=== PATIENT | female | born 1960 | race Caucasian/White ===

== ENCOUNTER 2020-01-25 10:28 | Outpatient (CLI) | payer MEDICARE, SELFPAY ==
[2020-01-25 10:48] LABS: Add Urine Microscopic? YES; Appearance Urine Clear (Clear); Bilirubin Urine Negative (Negative); Blood Urine 3+ (Negative); Color Urine Yellow (Yellow); Glucose Urine UA Negative (Negative); Ketones Urine Negative (Negative); Leukocyte Esterase Ur Negative LEU/UL (Negative); Nitrate Urine Positive (Negative); Protein Urine 2+ (Negative); Specific Grav Ur >= 1.030 (1.010-1.020); Urobilinogen Urine 0.2 mg/dL (0.2-1.0)
[2020-01-25 10:58] LABS: RBC Urine 0-2 /hpf (0-2); WBC Urine 0-3 /hpf (0-3)
[2020-01-25 11:01] LABS: Bacteria Urine 3+ /hpf; Squamous Epithelial Cell Urine Few /hpf (Few)
[2020-01-25 11:03] LABS: Hemoglobin A1C 5.2 % (<5.7)
[2020-01-25 11:12] LABS: Microalbumin Urine Random > 400.0 mg/L
[2020-01-25 11:48] LABS: Alanine Aminotransferase 18 U/L (14-59); Albumin Level 3.4 g/dL (3.4-5.0); Alkaline Phosphatase 132 U/L (46-116); Anion Gap 11.7 mmol/L (7-16); Aspartate Amino Transferase 22 U/L (15-37); Bilirubin,Total 0.3 mg/dL (0.00-1.00); Blood Urea Nitrogen 13 mg/dL (7-18); Calcium 9.3 mg/dL (8.5-10.1); Carbon Dioxide 31 mmol/L (21-32); Chloride 104 mmol/L (98-108); Cholesterol 255 mg/dL (0-200); Estimated Glomerular Filt Rate > 60; Free T4 Free Thyroxine 1.12 ng/dL (0.76-1.46); Glucose 89 mg/dL (70-99); HDL Direct 56 mg/dL (40-60); LDL Cholesterol Calculated 124 mg/dL (<130); Osmolality Calculated 293 mOsm/kg (285-295); Potassium 4.7 mmol/L (3.5-5.1); Sodium 142 mmol/L (136-145); Thyroid Stimulating Hormone 1.68 uIU/mL (0.36-3.74); Total Protein 6.4 g/dL (6.4-8.2); Triglycerides 377 mg/dL (0-150)
[2020-01-30 18:49] LABS: Vitamin D 25 Hydroxy 31 ng/mL (30-100)
== END 2020-01-25 10:29 | disposition home or self-care (01) ==
LOC: CHSLAB 10:30
PROVIDERS: PCP Internal Medicine; Visit Provider Internal Medicine
DX: E03.9 Hypothyroidism, unspecified (principal); E55.9 Vitamin D deficiency, unspecified; E78.5 Hyperlipidemia, unspecified; I10 Essential (primary) hypertension; R73.01 Impaired fasting glucose; R82.90 Unspecified abnormal findings in urine
CPT/HCPCS: 36415; 80053; 80061; 81001; 82043; 82306; 83036; 84439; 84443; 87077; 87086; 87088; 87186

== ENCOUNTER 2020-03-07 12:11 | Outpatient (CLI) | payer MEDICARE, OTHER, SELFPAY ==
--- NOTE | ~2020-03-07 | DEXA_ITS ---
BMD(1) Young-Adult(2) Age-Matched(3) Region (g/cm2) T-score Z-score WHO Classification L1 0.918 -1.8 -1.1 Osteopenia L2 1.020 -1.6 -0.9 Osteopenia L3 1.038 -1.4 -0.7 Osteopenia L4 1.099 -0.9 -0.2 Normal L1-L4 1.022 -1.4 -0.7 Osteopenia Trend: L1-L4 Change vs Change vs Measured Age BMD(1) Baseline Previous Date (years) (g/cm2) (%) (%) 03/07/2020 59.7 1.022 -6.4* -3.0* 06/09/2013 52.9 1.054 -3.5* -3.5* 05/05/2010 50.8 1.092 baseline - * - Indicates significant change based on 95% confidence interval. 1 - Statistically 68% of repeat scans fall within 1SD (+- 0.010 g/cm2 for AP Spine L1-L4) 2 - [place] (Combined NHANES (ages 20-30) / Boutique Window (ages 20-40)) AP Spine Reference Population (v112) 3 - Matched for Age, Weight (females 25-100 kg), Ethnic 11 - World Health Organization - Definition of Osteoporosis and Osteopenia for Women: Normal = T-score at or above -1.0 SD; Osteopenia = T-score between -1.0 and -2.5 SD; Osteoporosis = T-score at or below -2.5 SD; (WHO definitions only apply when a young healthy Women reference database is used to determine T-scores.) Printed: 03/07/2020 12:56:09 PM (13.60)76:3.00:50.00:12.0 0.00:8.94 0.60x1.05 27.0:%Fat=41.6% 0.00:0.00 0.00:0.00 Filename: [id number] Scan Mode: Standard;OneScan 37.0 [employer] [id number] BMD(1) Young-Adult(2,7) Age-Matched(3) Region (g/cm2) T-score Z-score WHO Classification Neck Left 0.745 -2.1 -1.2 Osteopenia Right 0.731 -2.2 -1.3 Osteopenia Mean 0.738 -2.2 -1.3 Osteopenia Difference 0.015 -0.1 -0.1 - Total Left 0.825 -1.5 -0.9 Osteopenia Right 0.823 -1.5 -0.9 Osteopenia Mean 0.824 -1.5 -0.9 Osteopenia Difference 0.002 0.0 0.0 - Hip Wiley Length Comparison (mm) (Right = 109.4 mm) (Mean = 102.5 mm) (Left = 113.6 mm) Trend: Total Mean Change vs Change vs Measured Age BMD(1) Baseline Previous Date (years) (g/cm2) (%) (%) 03/07/2020 60.7 0.824 -16.7* -12.7* 06/09/2013 52.9 0.944 -4.6* -4.6* 05/05/2010 50.8 0.989 baseline - * - Indicates significant change based on 95% confidence interval. 1 - Statistically 68% of repeat scans fall within 1SD (+- 0.010 g/cm2 for DualFemur Total) 2 - [place] (Combined NHANES (ages 20-30) / Boutique Window (ages 20-40)) Femur Reference Population (v112) 3 - Matched for Age, Weight (females 25-100 kg), Ethnic 7 - DualFemur Total T-score difference is 0.0. Asymmetry is None. 11 - World Health Organization - Definition of Osteoporosis and Osteopenia for Women: Normal = T-score at or above -1.0 SD; Osteopenia = T-score between -1.0 and -2.5 SD; Osteoporosis = T-score at or below -2.5 SD; (WHO definitions only apply when a young healthy Women reference database is used to determine T-scores.) Printed: 03/07/2020 12:56:09 PM (13.60); Filename: [id number]; Right Femur; 21.4:%Fat=38.9%; Neck Angle (deg)= 60; Scan Mode: Standard 37.0 uGy; Left Femur; 23.0:%Fat=46.0%; Neck Angle (deg)= 68; Scan Mode: Standard 37.0 [employer]pers [id number] Dear Erma Kilpatrick, Your patient Tasha Garcia completed a BMD test on 03/07/2020 using the Propers DXA System (analysis version: 13.60) manufactured by [employer]. The following summarizes the results of our evalu
--- NOTE | ~2020-03-07 | MM_ITS ---
EXAMINATION: MM screening thelma BI w mnoica HISTORY: Screening mammogram TECHNIQUE: Craniocaudal and mediolateral oblique 3-D tomosynthesis images were obtained and synthetic 2-D images were generated. CAD analysis was submitted and interpreted. COMPARISON: 09/28/2017, 04/20/2016 bilateral digital screening mammogram examinations BREAST PARENCHYMAL COMPOSITION: There are scattered areas of fibroglandular density. FINDINGS: There is no evidence of suspicious mass, calcification, or architectural distortion to sugg est malignancy in either breast. There has been no suspicious interval change. IMPRESSION: 1. No mammographic evidence of malignancy. 2. Recommend routine screening mammography in one year. BI-RADS Category 1: Negative Reviewed, dictated and finalized at location A.
== END 2020-03-07 12:12 | disposition home or self-care (01) ==
LOC: CHSIMG 12:11
PROVIDERS: PCP Internal Medicine; Visit Provider Internal Medicine
DX: Z12.31 Encounter for screening mammogram for malignant neoplasm of breast (principal); M81.0 Age-related osteoporosis without current pathological fracture
CPT/HCPCS: 77063; 77067; 77080

== ENCOUNTER 2020-03-21 13:52 | Outpatient (CLI) | payer MEDICARE, OTHER, SELFPAY ==
--- NOTE | ~2020-03-21 | XR_ITS ---
EXAMINATION: XR foot LT min 3V DATE: 03/21/2020 14:21 INDICATION: Left foot pain TECHNIQUE: Dorsoplantar, lateral, and 2 oblique views of the left foot were obtained. COMPARISON: 08/13/2010 FINDINGS: There is mild osteoarthritis at the first metatarsophalangeal joint. No displaced fracture is identified. The soft tissues are unremarkable. Dorsal and plantar calcaneal enthesophytes are note d. IMPRESSION: 1. No acute osseous abnormality. Reviewed, dictated and finalized at location A.
== END 2020-03-21 13:53 | disposition home or self-care (01) ==
LOC: CHSIMG 13:54
PROVIDERS: PCP Internal Medicine; Visit Provider Internal Medicine
DX: S99.922A Unspecified injury of left foot, initial encounter (principal)
CPT/HCPCS: 73630

== ENCOUNTER 2020-07-17 09:35 | Outpatient (CLI) | payer MEDICARE, SELFPAY ==
[2020-07-17 09:49] LABS: Add Urine Microscopic? YES; Appearance Urine Sl Cloudy (Clear); Basophils Absolute Auto 0.09 K/mm3 (0.00-0.10); Basophils Percent Auto 0.9 % (0.0-1.0); Bilirubin Urine Negative (Negative); Blood Urine 2+ (Negative); Color Urine Yellow (Yellow); Eosinophils Absolute Auto 0.13 K/mm3 (0.02-0.50); Eosinophils Percent Auto 1.3 % (1.0-6.0); Glucose Urine UA Negative (Negative); Hematocrit 44.5 % (35.0-49.0); Hemoglobin 15.1 g/dL (12.0-15.0); Immature Granulocyte Absolute 0.04 K/mm3 (0.00-0.00); Immature Granulocyte Percent A 0.4 % (0.0-0.0); Ketones Urine Negative (Negative); Leukocyte Esterase Ur Negative (Negative); Lymphocytes Absolute Auto 2.59 K/mm3 (1.10-4.50); Lymphocytes Percent Auto 25.1 % (18.0-42.0); Mean Corpuscular HGB Conc 33.9 g/dL (32.0-36.0); Mean Corpuscular Hemoglobin 34.7 pg (27.0-31.0); Mean Corpuscular Volume 102.3 fL (78.0-102.0); Mean Platelet Volume 8.8 fl (9.2-11.8); Monocytes Percent Auto 10.7 % (2.0-11.0); Neutrophils Absolute Auto 6.4 K/mm3 (1.7-7.2); Neutrophils Percent Auto 61.6 % (50.0-70.0); Nitrate Urine Positive (Negative); Platelet Count Result 278 K/mm3 (150-420); Protein Urine 2+ (Negative); Red Blood Count 4.35 M/mm3 (4.20-5.40); Red Cell Distribution Width 13.1 % (11.6-14.4); Specific Grav Ur >= 1.030 (1.010-1.020); Urobilinogen Urine 0.2 mg/dL (0.2-1.0); White Blood Count 10.3 K/mm3 (4.8-10.8)
[2020-07-17 09:54] LABS: Bacteria Urine 2+ /hpf; Squamous Epithelial Cell Urine Few /hpf (Few); WBC Urine 0-3 /hpf (0-3)
[2020-07-17 10:06] LABS: Creatinine Urine 105.01 mg/dL (40-278)
[2020-07-17 10:07] LABS: MALB Creatinine Ratio 380.9 mg/g (0-30); Microalbumin Urine Random > 400.0 mg/L
[2020-07-17 10:09] LABS: Hemoglobin A1C 4.9 % (<5.7)
[2020-07-17 10:39] LABS: Alanine Aminotransferase 15 U/L (14-59); Albumin Level 3.5 g/dL (3.4-5.0); Alkaline Phosphatase 143 U/L (46-116); Anion Gap 9 mmol/L (8-16); Aspartate Amino Transferase 19 U/L (15-37); Bilirubin,Total 0.4 mg/dL (0.00-1.00); Blood Urea Nitrogen 12 mg/dL (7-18); Calcium 9.4 mg/dL (8.5-10.1); Carbon Dioxide 28 mmol/L (21-32); Chloride 105 mmol/L (98-108); Cholesterol 247 mg/dL (0-200); Creatine Kinase 48 U/L (26-192); Estimated Glomerular Filt Rate > 60; Free T3 2.49 pg/mL (2.18-3.98); Free T4 Free Thyroxine 1.01 ng/dL (0.76-1.46); Glucose 100 mg/dL (70-99); HDL Direct 63 mg/dL (40-60); LDL Cholesterol Calculated 135 mg/dL (<130); Osmolality Calculated 293 mOsm/kg (285-295); Sodium 142 mmol/L (136-145); Total Protein 6.6 g/dL (6.4-8.2); Triglycerides 246 mg/dL (0-150); Uric Acid 5.5 mg/dL (2.6-6.0)
[2020-07-21 08:11] LABS: Zinc 71 mcg/dL (60-130)
[2020-07-22 02:02] LABS: Vitamin D 25 Hydroxy 37 ng/mL (30-100)
[2020-07-23 13:17] LABS: Vitamin A 54 mcg/dL (38-98)
== END 2020-07-17 09:36 | disposition home or self-care (01) ==
LOC: CHSLAB 09:37
PROVIDERS: PCP Internal Medicine; Visit Provider Internal Medicine
DX: E03.4 Atrophy of thyroid (acquired) (principal); Z98.84 Bariatric surgery status; E79.0 Hyperuricemia without signs of inflammatory arthritis and tophaceous disease; E78.2 Mixed hyperlipidemia; R73.01 Impaired fasting glucose; E55.9 Vitamin D deficiency, unspecified; N39.0 Urinary tract infection, site not specified
CPT/HCPCS: 36415; 80053; 80061; 81001; 82043; 82306; 82550; 83036; 84439; 84443; 84481; 84550; 84590; 84630; 85025; 87077; 87086; 87088; 87186

== ENCOUNTER 2020-07-30 12:28 | Outpatient (CLI) | payer MEDICARE, SELFPAY ==
[2020-07-30 12:44] LABS: Add Urine Microscopic? YES; Appearance Urine Clear (Clear); Bilirubin Urine Negative (Negative); Blood Urine 1+ (Negative); Color Urine Yellow (Yellow); Glucose Urine UA Negative (Negative); Ketones Urine Negative (Negative); Leukocyte Esterase Ur Negative (Negative); Nitrate Urine Negative (Negative); Protein Urine 2+ (Negative); Specific Grav Ur >= 1.030 (1.010-1.020); Urobilinogen Urine 0.2 mg/dL (0.2-1.0)
[2020-07-30 12:52] LABS: Squamous Epithelial Cell Urine Few /hpf (Few); WBC Urine 0-3 /hpf (0-3)
[2020-07-30 12:53] LABS: Bacteria Urine Trace /hpf
[2020-07-30 14:02] LABS: Vitamin B12 1950 pg/mL (193-986)
[2020-08-01 11:53] LABS: Vitamin D 25 Hydroxy 34 ng/mL (30-100)
== END 2020-07-30 12:29 | disposition home or self-care (01) ==
LOC: CHSLAB 12:30
PROVIDERS: PCP Internal Medicine; Visit Provider Internal Medicine
DX: N39.0 Urinary tract infection, site not specified (principal); M05.59 Rheumatoid polyneuropathy with rheumatoid arthritis of multiple sites; E55.9 Vitamin D deficiency, unspecified
CPT/HCPCS: 36415; 81001; 82306; 82607; 87077; 87086; 87088; 87186

== ENCOUNTER 2020-09-09 10:47 | Outpatient (CLI) | payer MEDICARE, OTHER, SELFPAY ==
--- NOTE | ~2020-09-09 | CT_ITS ---
EXAMINATION:CT lung screening DATE: 09/09/2020 11:06 INDICATION: Personal history of tobacco dependence. Current smoker with 43 pack year history. TECHNIQUE: Computed tomography (CT) of the chest was performed without intravenous contrast. Automate d exposure control and iterative reconstruction technique were employed. The dose-length product (DLP ) was 194.61 mGy-cm. COMPARISON: Chest CT 09/26/2018 FINDINGS: There is mild emphysema. There is mosaic attenuation the lungs, likely small airways diseas e. Calcified right lung nodules and calcified right hilar and mediastinal lymph nodes are consistent with old granulomatous disease. There is a cluster of nodules measuring up to 3 mm in right upper lob e. There is a 3 mm nodule in right lower lobe. No pleural effusion. The heart size is normal. There a re coronary artery calcifications. There are calcifications of aortic valve. No pericardial effusion. There are changes of anterior fusion procedure in cervical spine. There is a small sliding hiatal he rnia. Calcifications in the spleen are consistent with old granulomatous disease. There are changes o f cholecystectomy. There is a 1.8 cm cyst in left kidney. There are masses measuring low-attenuation in the adrenal glands measuring up to 2.0 cm on the left, consistent with adenomas. There are surgica l changes in the stomach. There is mild thoracic spondylosis. IMPRESSION: 1. Lung-RADS category 2: Benign appearance or behavior. Continue annual screening with noncontrast lo w-dose chest CT in 12 months. Reviewed, dictated and finalized at location A. 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 Lung-RADS category 2: Benign appearance or behavior. Continue annual screeni ng with noncontrast low-dose chest CT in 12 months.
== END 2020-09-09 10:48 | disposition home or self-care (01) ==
LOC: CHSIMG 10:48
PROVIDERS: PCP Internal Medicine; Visit Provider Internal Medicine
DX: Z12.2 Encounter for screening for malignant neoplasm of respiratory organs (principal); Z87.891 Personal history of nicotine dependence
CPT/HCPCS: 71271

== ENCOUNTER 2021-02-14 07:07 | Outpatient (CLI) | payer MEDICARE, SELFPAY ==
[2021-02-14 07:29] LABS: Basophils Absolute Auto 0.08 K/mm3 (0.00-0.10); Basophils Percent Auto 0.6 % (0.0-1.0); Eosinophils Absolute Auto 0.12 K/mm3 (0.02-0.50); Hematocrit 42.1 % (35.0-49.0); Hemoglobin 13.6 g/dL (12.0-15.0); Immature Granulocyte Absolute 0.12 K/mm3 (0.00-0.00); Lymphocytes Absolute Auto 4.29 K/mm3 (1.10-4.50); Lymphocytes Percent Auto 34.6 % (18.0-42.0); Mean Corpuscular HGB Conc 32.3 g/dL (32.0-36.0); Mean Corpuscular Hemoglobin 35.5 pg (27.0-31.0); Mean Corpuscular Volume 109.9 fL (78.0-102.0); Mean Platelet Volume 9.4 fl (9.2-11.8); Monocytes Percent Auto 6.4 % (2.0-11.0); Neutrophils Percent Auto 56.4 % (50.0-70.0); Platelet Count Result 159 K/mm3 (150-420); Red Blood Count 3.83 M/mm3 (4.20-5.40); White Blood Count 12.4 K/mm3 (4.8-10.8)
[2021-02-14 07:30] LABS: Add Urine Microscopic? YES; Appearance Urine Clear (Clear); Bilirubin Urine Negative (Negative); Blood Urine 2+ (Negative); Color Urine Yellow (Yellow); Glucose Urine UA Negative (Negative); Ketones Urine Negative (Negative); Leukocyte Esterase Ur Negative (Negative); Nitrate Urine Positive (Negative); Protein Urine Trace (Negative); Specific Grav Ur >= 1.030 (1.010-1.020); Urobilinogen Urine 0.2 mg/dL (0.2-1.0); pH Urine 5.5 (5.0-8.0)
[2021-02-14 07:36] LABS: Bacteria Urine 1+ /hpf; Squamous Epithelial Cell Urine Rare /hpf (Few); WBC Urine 0-3 /hpf (0-3)
[2021-02-14 07:49] LABS: Hemoglobin A1C 4.8 % (<5.7)
[2021-02-14 09:00] LABS: Alanine Aminotransferase 20 U/L (14-59); Albumin Level 3.5 g/dL (3.4-5.0); Alkaline Phosphatase 60 U/L (46-116); Anion Gap 11 mmol/L (8-16); Aspartate Amino Transferase 18 U/L (15-37); Bilirubin,Total 0.2 mg/dL (0.00-1.00); Blood Urea Nitrogen 24 mg/dL (7-18); Calcium 8.7 mg/dL (8.5-10.1); Carbon Dioxide 27 mmol/L (21-32); Chloride 109 mmol/L (98-108); Cholesterol 223 mg/dL (0-200); Creatine Kinase 36 U/L (26-192); Estimated Glomerular Filt Rate > 60; Free T3 2.02 pg/mL (2.18-3.98); Free T4 Free Thyroxine 0.78 ng/dL (0.76-1.46); Glucose 79 mg/dL (70-99); HDL Direct 55 mg/dL (40-60); LDL Cholesterol Calculated 87 mg/dL (<130); Osmolality Calculated 307 mOsm/kg (285-295); Potassium 3.9 mmol/L (3.5-5.1); Sodium 147 mmol/L (136-145); Thyroid Stimulating Hormone 4.11 uIU/mL (0.36-3.74); Total Protein 5.6 g/dL (6.4-8.2); Triglycerides 405 mg/dL (0-150); Uric Acid 5.9 mg/dL (2.6-6.0)
[2021-02-14 09:01] LABS: LDL Cholesterol Direct 92 mg/dL (0-130)
[2021-02-17 02:34] LABS: Vitamin D 25 Hydroxy 28 ng/mL (30-100)
== END 2021-02-14 07:08 | disposition home or self-care (01) ==
LOC: CHSLAB 07:09
PROVIDERS: PCP Internal Medicine; Visit Provider Internal Medicine
DX: E78.2 Mixed hyperlipidemia (principal); I10 Essential (primary) hypertension; E03.4 Atrophy of thyroid (acquired); R73.01 Impaired fasting glucose; E79.0 Hyperuricemia without signs of inflammatory arthritis and tophaceous disease; M81.0 Age-related osteoporosis without current pathological fracture; N39.0 Urinary tract infection, site not specified; E55.9 Vitamin D deficiency, unspecified
CPT/HCPCS: 36415; 80053; 80061; 81001; 82306; 82550; 83036; 83721; 84439; 84443; 84481; 84550; 85025; 87077; 87086; 87088; 87186

== ENCOUNTER 2021-02-26 09:45 | Outpatient (CLI) | payer MEDICARE, OTHER, SELFPAY ==
--- NOTE | ~2021-02-26 | XR_ITS ---
EXAMINATION: XR chest 2V DATE: 02/26/2021 10:11 INDICATION: Shortness of breath. TECHNIQUE: Frontal and lateral views of the chest were obtained. COMPARISON: Chest 2 views 12/18/2015, chest CT 09/09/2020 FINDINGS: The lungs are hyperexpanded, consistent with chronic obstructive pulmonary disease. Calcifi ed right lung nodules and calcified right hilar and mediastinal lymph nodes are consistent with old g ranulomatous disease. No pleural effusion or pneumothorax. The heart size is normal. There are change s of anterior fusion procedure in cervical spine. Surgical clips in the right upper quadrant are like ly from cholecystectomy. IMPRESSION: 1. Hyperexpanded lungs, consistent with chronic obstructive pulmonary disease. Reviewed, dictated and finalized at location A.
[2021-02-26 10:01] LABS: Basophils Absolute Auto 0.09 K/mm3 (0.00-0.10); Basophils Percent Auto 0.7 % (0.0-1.0); Eosinophils Absolute Auto 0.19 K/mm3 (0.02-0.50); Eosinophils Percent Auto 1.5 % (1.0-6.0); Hematocrit 43.3 % (35.0-49.0); Hemoglobin 14.3 g/dL (12.0-15.0); Immature Granulocyte Absolute 0.26 K/mm3 (0.00-0.00); Lymphocytes Absolute Auto 3.05 K/mm3 (1.10-4.50); Lymphocytes Percent Auto 23.5 % (18.0-42.0); Mean Corpuscular Hemoglobin 35.8 pg (27.0-31.0); Mean Corpuscular Volume 108.5 fL (78.0-102.0); Mean Platelet Volume 9.3 fl (9.2-11.8); Monocytes Absolute Auto 1.13 K/mm3 (0.10-0.90); Monocytes Percent Auto 8.7 % (2.0-11.0); Neutrophils Absolute Auto 8.3 K/mm3 (1.7-7.2); Neutrophils Percent Auto 63.6 % (50.0-70.0); Platelet Count Result 159 K/mm3 (150-420); Red Blood Count 3.99 M/mm3 (4.20-5.40); Red Cell Distribution Width 13.9 % (11.6-14.4)
[2021-02-26 10:29] LABS: Alanine Aminotransferase 18 U/L (14-59); Albumin Level 3.6 g/dL (3.4-5.0); Alkaline Phosphatase 57 U/L (46-116); Anion Gap 11 mmol/L (8-16); Aspartate Amino Transferase < 10 U/L (15-37); Bilirubin,Total 0.3 mg/dL (0.00-1.00); Blood Urea Nitrogen 21 mg/dL (7-18); Calcium 8.7 mg/dL (8.5-10.1); Carbon Dioxide 26 mmol/L (21-32); Chloride 109 mmol/L (98-108); Estimated Glomerular Filt Rate > 60; Glucose 90 mg/dL (70-99); NT Pro B Type Natriuretic Pept 509 pg/mL (0-125); Osmolality Calculated 305 mOsm/kg (285-295); Potassium 4.1 mmol/L (3.5-5.1); Sodium 146 mmol/L (136-145); Thyroid Stimulating Hormone 1.44 uIU/mL (0.36-3.74); Total Protein 6.2 g/dL (6.4-8.2)
== END 2021-02-26 09:46 | disposition home or self-care (01) ==
LOC: CHSLAB 09:50
PROVIDERS: PCP Internal Medicine; Visit Provider Internal Medicine
DX: R06.02 Shortness of breath (principal); M05.79 Rheumatoid arthritis with rheumatoid factor of multiple sites without organ or systems involvement; Z79.899 Other long term (current) drug therapy; E05.90 Thyrotoxicosis, unspecified without thyrotoxic crisis or storm
CPT/HCPCS: 36415; 71046; 80053; 83880; 84443; 85025

== ENCOUNTER 2021-02-28 11:25 | Outpatient (CLI) | payer MEDICARE, OTHER, SELFPAY ==
--- NOTE | ~2021-02-28 | CT_ITS ---
EXAMINATION: CTA chest PE protocol DATE: 02/28/2021 15:06 INDICATION: Shortness of breath TECHNIQUE: Computed tomography angiography (CTA) of the chest was performed with 100 mL Omnipaque-350 intravenous contrast timed to evaluate the pulmonary arteries. Coronal maximum intensity projection 3D-reconstructions were created by the technologist. The dose-length product (DLP) was 527.29 mGy-cm. Automated exposure control and iterative reconstruction technique were employed. COMPARISON: 09/09/2020 FINDINGS: The pulmonary arteries are well-opacified. There are acute emboli in the upper lobes, the r ight middle lobe, the lingula, and lower lobes. There is a cluster of nodules in the right upper lobe which have increased in size now measuring up to 5 mm. There is no pleural effusion or pneumothorax. There is mild emphysema. The heart size is normal. Calcified coronary artery atherosclerosis is note d. Calcified mediastinal lymph nodes are consistent with old granulomatous disease. Again noted are a denomas of the adrenal glands. Punctate calcifications in otherwise normal appearing liver and spleen likely represent healed granulomatous disease. The gallbladder is surgically absent. IMPRESSION: 1. Widespread pulmonary emboli involving all lobes of the lungs. These findings were discussed with Dr. Erma Kilpatrick MD at 1515 hours on 02/28/2021. Reviewed, dictated and finalized at location B. IMPRESSION: 1. Widespread pulmonary emboli involving all lobes of the lungs. These findings were discussed with Dr. Erma Kilpatrick MD at 1515 hours on .
[2021-02-28 11:48] LABS: Basophils Absolute Auto 0.04 K/mm3 (0.00-0.10); Basophils Percent Auto 0.4 % (0.0-1.0); Eosinophils Absolute Auto 0.05 K/mm3 (0.02-0.50); Eosinophils Percent Auto 0.5 % (1.0-6.0); Hematocrit 44.5 % (35.0-49.0); Hemoglobin 14.7 g/dL (12.0-15.0); Immature Granulocyte Absolute 0.13 K/mm3 (0.00-0.00); Immature Granulocyte Percent A 1.2 % (0.0-0.0); Mean Corpuscular Hemoglobin 35.8 pg (27.0-31.0); Mean Corpuscular Volume 108.3 fL (78.0-102.0); Mean Platelet Volume 9.4 fl (9.2-11.8); Monocytes Absolute Auto 0.39 K/mm3 (0.10-0.90); Monocytes Percent Auto 3.6 % (2.0-11.0); Neutrophils Absolute Auto 8.6 K/mm3 (1.7-7.2); Neutrophils Percent Auto 80.3 % (50.0-70.0); Platelet Count Result 157 K/mm3 (150-420); Red Blood Count 4.11 M/mm3 (4.20-5.40); Red Cell Distribution Width 13.7 % (11.6-14.4); White Blood Count 10.7 K/mm3 (4.8-10.8)
[2021-02-28 12:12] LABS: D Dimer 4.97 mg/L (0.19-0.50)
[2021-02-28 12:28] LABS: Alanine Aminotransferase 19 U/L (14-59); Albumin Level 3.8 g/dL (3.4-5.0); Alkaline Phosphatase 60 U/L (46-116); Anion Gap 9 mmol/L (8-16); Aspartate Amino Transferase 18 U/L (15-37); Bilirubin,Total 0.5 mg/dL (0.00-1.00); Blood Urea Nitrogen 20 mg/dL (7-18); Calcium 8.9 mg/dL (8.5-10.1); Carbon Dioxide 27 mmol/L (21-32); Chloride 107 mmol/L (98-108); Estimated Glomerular Filt Rate > 60; Glucose 97 mg/dL (70-99); NT Pro B Type Natriuretic Pept 339 pg/mL (0-125); Osmolality Calculated 298 mOsm/kg (285-295); Potassium 4.4 mmol/L (3.5-5.1); Sodium 143 mmol/L (136-145); Total Protein 6.4 g/dL (6.4-8.2); Vitamin B12 1207 pg/mL (193-986)
[2021-02-28 12:46] LABS: Folic Acid > 20.0 ng/mL (8.6->20)
[2021-02-28 12:54] LABS: SARS-CoV-2 RNA PCR Negative (Negative)
[2021-02-28 15:44] VITALS: BMI 33.8
[2021-02-28 15:45] VITALS: BP 130/74; PULSE 72; RESP 20; O2SAT 93
[2021-02-28] MEDS: ENOXAPARIN 30 MG/0.3 ML SYRINGE SUB-Q (15:55)
[2021-02-28] MEDS: ENOXAPARIN 120 MG/0.8 ML SYRINGE SUB-Q (15:55)
--- NOTE | 2021-02-28 15:58 | PC.NURSE ---
Patient sent over by Dr. Kilpatrick to have Lovenox injection x1 r/t findings on CTA of PE. Education on medication given. Injection given. Patient will now be starting tomorrow on Eliquis PO. Tolerated injection well. SEE MAR. Safe exit of hospital.
== END 2021-02-28 11:26 | disposition home or self-care (01) ==
PROVIDERS: PCP Internal Medicine; Visit Provider Internal Medicine
DX: I26.99 Other pulmonary embolism without acute cor pulmonale (principal); R06.02 Shortness of breath; R79.1 Abnormal coagulation profile; R05 Cough; E53.8 Deficiency of other specified B group vitamins; Z20.822 Contact with and (suspected) exposure to COVID-19
CPT/HCPCS: 36415; 71275; 80053; 82607; 82746; 83880; 85025; 85380; 96372; C9803; J1650; Q9967; U0003; U0005

== ENCOUNTER 2021-03-20 11:43 | Outpatient (CLI) | payer MEDICARE, OTHER, SELFPAY ==
--- NOTE | ~2021-03-20 | MM_ITS ---
EXAMINATION: MM screening thelma BI w monica HISTORY: Screening TECHNIQUE: Craniocaudal and mediolateral oblique 3-D tomosynthesis images were obtained and synthetic 2-D images were generated. CAD analysis was submitted and interpreted. COMPARISON: Comparison to multiple prior studies sequentially, with oldest reviewed study dated 04/13. BREAST PARENCHYMAL COMPOSITION: There are scattered areas of fibroglandular density. FINDINGS: There is no evidence of suspicious mass, calcification, or architectural distortion to sugg est malignancy in either breast. There has been no suspicious interval change. IMPRESSION: 1. No mammographic evidence of malignancy. 2. Recommend routine screening mammography in one year. BI-RADS Category 1: Negative Reviewed, dictated and finalized at location A.
--- NOTE | 2021-03-20 12:59 | ECHO_ITS ---
Patient Info Name: Tasha Garcia Age: 60 years : 1960 Gender: Female Ht: 62 in Wt: 185 lbs BSA: 1.95 m2 HR: 56 bpm BP: 132 / 72 mmHg Exam Date: 03/20/2021 12:02 PM Exam Location: [facility] Patient Status: Outpatient Admit Date: 03/20/2021 Staff Ordering Physician: Mary, Carrington Dhaliwal MD Park Guard: Jovani Ferrari RDCS, RT Attending Provider: Erma Kilpatrick MD Referring Physician: Mary GUERRERO; Exam Type: CA echo doppler color flow Study Info Indications R06.02 - Shortness of breath Complete two-dimensional, color flow and Doppler transthoracic echocardiogram is performed. Strain analysis performed. Summary 1. Complete two-dimensional, color flow and Doppler transthoracic echocardiogram is performed. 2. Left ventricular chamber dimension is normal. 3. Left ventricular systolic function is normal, estimated at 60-65%. 4. The left ventricular diastolic function is grade I diastolic dysfunction. 5. E/e' 9 is minimally elevated. 6. Global longitudinal strain is normal at -17.8%. 7. Left atrial chamber dimension is mildly enlarged. 8. There is moderate aortic valve sclerosis. 9. There is mild aortic valve stenosis with a peak velocity of 216 cm/s, mean gradient of 10 mmHg, and aortic valve area of 1.8 cm2. 10. There is mild aortic valve regurgitation. 11. There is trace mitral valve regurgitation. 12. Dilated inferior vena cava with >50% collapse upon inspiration consistent with elevated right atrial pressure, 10 mmHg. Left Ventricle E/e' 9 is minimally elevated. Global longitudinal strain is normal at -17.8%. Left ventricular chamber dimension is normal. Left ventricular systolic function is normal, estimated at 60-65%. The left ventricular diastolic function is grade I diastolic dysfunction. Right Ventricle Right ventricular systolic function is normal and with normal TAPSE 2.6 cm. Right ventricular chamber dimension is normal. Left Atria Left atrial chamber dimension is mildly enlarged. Right Atria Right atrial chamber dimension is normal. Aortic Valve The aortic valve is trileaflet. There is moderate aortic valve sclerosis. There is mild aortic valve stenosis with a peak velocity of 216 cm/s, mean gradient of 10 mmHg, and aortic valve area of 1.8 cm2. There is mild aortic valve regurgitation. Pulmonic Valve There is no pulmonic regurgitation. Mitral Valve There is no mitral valve stenosis. There is trace mitral valve regurgitation. Tricuspid Valve No tricuspid regurgitation. Pericardium/Pleural There is no pericardial effusion. Inferior Vena Cava Dilated inferior vena cava with >50% collapse upon inspiration consistent with elevated right atrial pressure, 10 mmHg. Aorta The aortic root size at the sinus of Valsalva is not well visualized. Left Ventricular Outflow Tract Name Value Normal LVOT 2D LVOT Diameter 2.0 cm LVOT Doppler LVOT Peak Velocity 113 cm/s LVOT Peak Gradient 5 mmHg LVOT Mean Gradient 3 mmHg LVOT VTI 26 cm LVOT VTI/
== END 2021-03-20 11:44 | disposition home or self-care (01) ==
LOC: CHSIMG 11:45
PROVIDERS: PCP Internal Medicine; Visit Provider Internal Medicine
DX: J44.9 Chronic obstructive pulmonary disease, unspecified (principal); R06.02 Shortness of breath; I35.8 Other nonrheumatic aortic valve disorders; I35.0 Nonrheumatic aortic (valve) stenosis; Z12.31 Encounter for screening mammogram for malignant neoplasm of breast
CPT/HCPCS: 77063; 77067; 93306

== ENCOUNTER 2021-04-12 11:29 | Outpatient (CLI) | payer MEDICARE, SELFPAY ==
[2021-04-12 12:21] LABS: Anion Gap 8 mmol/L (8-16); Blood Urea Nitrogen 22 mg/dL (7-18); Calcium 8.8 mg/dL (8.5-10.1); Carbon Dioxide 31 mmol/L (21-32); Chloride 107 mmol/L (98-108); Estimated Glomerular Filt Rate > 60; Glucose 84 mg/dL (70-99); Osmolality Calculated 304 mOsm/kg (285-295); Potassium 4.5 mmol/L (3.5-5.1); Sodium 146 mmol/L (136-145)
== END 2021-04-12 11:30 | disposition home or self-care (01) ==
LOC: CHSLAB 11:31
PROVIDERS: PCP Internal Medicine; Visit Provider Internal Medicine
DX: I10 Essential (primary) hypertension (principal)
CPT/HCPCS: 36415; 80048

== ENCOUNTER 2021-06-17 13:35 | Outpatient (CLI) | payer MEDICARE, SELFPAY ==
[2021-07-02 08:23] LABS: Reference Lab Test Name THIOPURINE METABOLIT
== END 2021-06-17 13:36 | disposition home or self-care (01) ==
PROVIDERS: Internal Medicine; PCP Internal Medicine
DX: M05.79 Rheumatoid arthritis with rheumatoid factor of multiple sites without organ or systems involvement (principal)
CPT/HCPCS: 36415; 80299

== ENCOUNTER 2021-08-14 09:11 | Outpatient (RCR) | payer MEDICARE, SELFPAY ==
[2021-07-14 13:22] LABS: INR 2.1; Prothrombin Time 21.7 Seconds (9.50-12.10)
[2021-07-21 12:55] LABS: INR 4.2; Prothrombin Time 42.1 Seconds (9.50-12.10)
[2021-07-28 14:28] LABS: INR 2.7; Prothrombin Time 27.6 Seconds (9.50-12.10)
[2021-08-14 09:43] LABS: INR 2.8; Prothrombin Time 28.6 Seconds (9.50-12.10)
== END 2021-10-12 23:59 | disposition home or self-care (01) ==
LOC: CHSLAB 09:11
PROVIDERS: PCP Internal Medicine; Visit Provider Internal Medicine
DX: I26.99 Other pulmonary embolism without acute cor pulmonale (principal)
CPT/HCPCS: 36415; 85610

== ENCOUNTER 2021-09-12 10:35 | Outpatient (CLI) | payer MEDICARE, SELFPAY ==
--- NOTE | ~2021-09-12 | XR_ITS ---
EXAMINATION: XR chest 2V 09/12/2021 11:01 INDICATION: Shortness of breath and cough PROCEDURE: 2 view chest COMPARISON: Comparison to multiple prior studies sequentially, with oldest reviewed study dated 06/19. FINDINGS: The lungs are clear. The cardiomediastinal silhouette is within normal limits. There are no pleural effusions. There is no pneumothorax suspected. IMPRESSION: 1: NO ACUTE CARDIOPULMONARY DISEASE. Reviewed, dictated and finalized at location B. 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
[2021-09-12 10:48] LABS: Hematocrit 27.1 % (35.0-49.0); Hemoglobin 9.4 g/dL (12.0-15.0); Mean Corpuscular HGB Conc 34.7 g/dL (32.0-36.0); Mean Corpuscular Hemoglobin 41.2 pg (27.0-31.0); Mean Corpuscular Volume 118.9 fL (78.0-102.0); Mean Platelet Volume 10.3 fl (9.2-11.8); Platelet Count Result 188 K/mm3 (150-420); Red Blood Count 2.28 M/mm3 (4.20-5.40); Red Cell Distribution Width 22.1 % (11.6-14.4); White Blood Count 3.5 K/mm3 (4.8-10.8)
[2021-09-12 11:01] LABS: Band Neutrophils Percent 0 % (0-6); Eosinophils Absolute Manual 0.21 K/mm3 (0.02-0.5); Eosinophils Percent Manual 6 % (1-6); INR 1.8; Lymphocytes Absolute Manual 0.87 K/mm3 (1.1-4.5); Lymphocytes Percent Manual 25 % (18-44); Monocytes Absolute Manual 0.14 K/mm3 (0.1-0.90); Monocytes Percent Manual 4 % (3-9); Neutrophils Absolute Manual 2.27 K/mm3 (1.7-7.2); Neutrophils Percent Manual 65 % (46-73); Platelet Estimate Adequate (Adequate); Total Cells Counted 100
[2021-09-12 11:29] LABS: Immature Reticulocyte Fraction 23.5 % (2.0-16.52); Reticulocyte Hemoglobin Conten 43.8 pg (28.0-35.0); Reticulocyte Percent 3.86 % (0.50-1.50); Reticulocytes Absolute 0.09 M/mm3 (0.02-0.1)
[2021-09-12 12:09] LABS: Ferritin 187 ng/mL (8-252); Iron 241 ug/dL (50-170); Vitamin B12 986 pg/mL (193-986)
[2021-09-12 12:11] LABS: Influenza Control Valid (Valid); SARS-CoV-2 Ag Negative (Negative)
[2021-09-16 14:04] LABS: Red Blood Cell Folate 801 ng/mL RBC (>280)
== END 2021-09-12 10:36 | disposition home or self-care (01) ==
PROVIDERS: PCP Internal Medicine; Visit Provider Internal Medicine
DX: D64.9 Anemia, unspecified (principal); R05.9 Cough, unspecified; R06.02 Shortness of breath; Z79.01 Long term (current) use of anticoagulants; I26.99 Other pulmonary embolism without acute cor pulmonale
CPT/HCPCS: 36415; 71046; 82607; 82728; 82747; 83540; 85025; 85046; 85610; 87426; 87804; C9803

== ENCOUNTER 2021-09-19 10:48 | Outpatient (CLI) | payer MEDICARE, SELFPAY ==
[2021-09-19 10:58] LABS: Occult Blood Negative (Negative)
[2021-09-19 10:58] LABS: Occult Blood Negative (Negative)
[2021-09-19 10:58] LABS: Occult Blood Negative (Negative)
== END 2021-09-19 10:49 | disposition home or self-care (01) ==
LOC: CHSLAB 10:49
PROVIDERS: PCP Internal Medicine; Visit Provider Internal Medicine
DX: D64.9 Anemia, unspecified (principal); R05.9 Cough, unspecified; R06.02 Shortness of breath
CPT/HCPCS: 82272

== ENCOUNTER 2021-10-17 11:04 | Outpatient (CLI) | payer MEDICARE, SELFPAY ==
[2021-10-17 11:20] LABS: Basophils Absolute Auto 0.06 K/mm3 (0.00-0.10); Basophils Percent Auto 0.7 % (0.0-1.0); Eosinophils Absolute Auto 0.11 K/mm3 (0.02-0.50); Eosinophils Percent Auto 1.3 % (1.0-6.0); Hematocrit 38.3 % (35.0-49.0); Hemoglobin 12.6 g/dL (12.0-15.0); Immature Granulocyte Absolute 0.07 K/mm3 (0.00-0.00); Immature Granulocyte Percent A 0.8 % (0.0-0.0); Lymphocytes Absolute Auto 2.46 K/mm3 (1.10-4.50); Lymphocytes Percent Auto 28.3 % (18.0-42.0); Mean Corpuscular HGB Conc 32.9 g/dL (32.0-36.0); Mean Corpuscular Hemoglobin 38.9 pg (27.0-31.0); Mean Corpuscular Volume 118.2 fL (78.0-102.0); Mean Platelet Volume 9.9 fl (9.2-11.8); Monocytes Absolute Auto 0.71 K/mm3 (0.10-0.90); Monocytes Percent Auto 8.2 % (2.0-11.0); Neutrophils Absolute Auto 5.3 K/mm3 (1.7-7.2); Neutrophils Percent Auto 60.7 % (50.0-70.0); Platelet Count Result 112 K/mm3 (150-420); Red Blood Count 3.24 M/mm3 (4.20-5.40); Red Cell Distribution Width 15.1 % (11.6-14.4); White Blood Count 8.7 K/mm3 (4.8-10.8)
[2021-10-17 11:36] LABS: INR 2.5; Prothrombin Time 25.8 Seconds (9.50-12.10)
== END 2021-10-17 11:05 | disposition home or self-care (01) ==
PROVIDERS: PCP Internal Medicine; Visit Provider Internal Medicine
DX: I26.99 Other pulmonary embolism without acute cor pulmonale (principal); D64.9 Anemia, unspecified
CPT/HCPCS: 36415; 85025; 85610

== ENCOUNTER 2021-10-21 11:25 | Outpatient (CLI) | payer MEDICARE, SELFPAY ==
[2021-10-21 11:38] LABS: Immature Reticulocyte Fraction 21.7 % (2.0-16.52); Reticulocyte Hemoglobin Conten 33.7 pg (28.0-35.0); Reticulocyte Percent 3.03 % (0.50-1.50)
[2021-10-21 12:54] LABS: Vitamin B12 1324 pg/mL (193-986)
[2021-10-25 09:51] LABS: Red Blood Cell Folate 668 ng/mL RBC (>280)
== END 2021-10-21 11:26 | disposition home or self-care (01) ==
LOC: CHSLAB 11:26
PROVIDERS: PCP Internal Medicine; Visit Provider Internal Medicine
DX: D64.9 Anemia, unspecified (principal)
CPT/HCPCS: 36415; 82607; 82747; 85046

== ENCOUNTER 2021-10-23 11:14 | Outpatient (CLI) | payer MEDICARE, SELFPAY ==
[2021-10-23 12:05] LABS: Bilirubin,Total 0.3 mg/dL (0.00-1.00); Lactate Dehydrogenase 323 U/L (81-234)
[2021-10-26 13:43] LABS: Haptoglobin 105 mg/dL (43-212)
== END 2021-10-23 11:15 | disposition home or self-care (01) ==
LOC: CHSLAB 11:16
PROVIDERS: PCP Internal Medicine; Visit Provider Internal Medicine
DX: D58.9 Hereditary hemolytic anemia, unspecified (principal)
CPT/HCPCS: 36415; 82247; 83010; 83615; 86880

== ENCOUNTER 2021-11-03 09:59 | Outpatient (CLI) | payer MEDICARE, SELFPAY ==
[2021-11-03 10:15] VITALS: PULSE 64; O2SAT 95
[2021-11-03 10:23] VITALS: PULSE 76; O2SAT 89
--- NOTE | 2021-11-03 10:26 | HOMEO2EVAL ---
Evaluation was performed at [facility] Home Oxygen Evaluation RC: Home Oxygen (O2) Evaluation Start: 11/03/21 10:21 Freq: Status: Active Protocol: RPE Activity Type Activity Date Activity User E-Sign Co-Sign Detail Recorded Client Recorded Date Recorded By Document 11/03/21 10:15 SHANICE [id number] 11/03/21 10:25 SJB Document 11/03/21 10:23 SJB [id number] 11/03/21 10:25 SJB 11/03/21 11/03/21 10:15 10:23 Home O2 Evaluation Test Phase Resting Exercise Oxygen Delivery Room Air Room Air Pulse Oximetry (90-100 %) 95 89 L Pulse Rate (60-100 beats/min) 64 76 Activity Tolerance Good Rating of Perceived Dyspnea (PD) +3 Moderate Difficulty, But Can Continue Rate of Perceived Exertion (PE) 12 Ambulation Distance (feet) 700 Ambulation Distance (meters) 213.34 Home Oxygen Evaluation Comments Will begin walk Pt walked on room air, approx 700 ft pushing pushing wheelchair wheelchair on room air. Sp02s remained at 89% and above. HR remained from 60s to 70s. PLB encouraged. Tolerated well, talkative . Treatment Charges O2 Evaluation - Outpatient
[2021-11-03 10:55] LABS: Alanine Aminotransferase 15 U/L (14-59); Alkaline Phosphatase 106 U/L (46-116); Anion Gap 7 mmol/L (8-16); Aspartate Amino Transferase 18 U/L (15-37); Bilirubin,Total 0.3 mg/dL (0.00-1.00); Blood Urea Nitrogen 21 mg/dL (7-18); Calcium 8.6 mg/dL (8.5-10.1); Carbon Dioxide 30 mmol/L (21-32); Chloride 106 mmol/L (98-108); Estimated Glomerular Filt Rate > 60; Glucose 94 mg/dL (70-99); Osmolality Calculated 299 mOsm/kg (285-295); Potassium 4.3 mmol/L (3.5-5.1); Sodium 143 mmol/L (136-145); Total Protein 6.1 g/dL (6.4-8.2)
== END 2021-11-03 10:00 | disposition home or self-care (01) ==
LOC: CHSCARD 10:02
PROVIDERS: PCP Internal Medicine; Visit Provider Internal Medicine
DX: J44.9 Chronic obstructive pulmonary disease, unspecified (principal); R06.00 Dyspnea, unspecified; M05.79 Rheumatoid arthritis with rheumatoid factor of multiple sites without organ or systems involvement; M05.59 Rheumatoid polyneuropathy with rheumatoid arthritis of multiple sites; M10.9 Gout, unspecified; F11.90 Opioid use, unspecified, uncomplicated
CPT/HCPCS: 36415; 80053; 94060; 94618; 94726; 94729

== ENCOUNTER 2021-11-05 08:40 | Outpatient (CLI) | payer MEDICARE, SELFPAY ==
--- NOTE | ~2021-11-05 | CT_ITS ---
EXAMINATION: CTA chest PE protocol EXAM DATE: 11/05/2021 09:28 INDICATION: F/U PE 8-21, still have SOB TECHNIQUE: Spiral CTA of the chest (pulmonary arteries) was performed with 100 cc Omnipaque 350 intr avenous contrast injection. Images were acquired during the pulmonary arterial phase. Coronal maxi mum intensity projection 3D-reconstructions were created by the technologist on dedicated workstation . Axial, coronal and sagittal reformatted images were reviewed. The dose-length product (DLP) for t his examination was 724.20 mGy-cm. The exposure was tailored according to patient size (auto mA exp osure control), and iterative reconstruction (ASIR) was used as additional dose reduction technique. Comparison is made to prior examination from 02/29/2020. FINDINGS: The main, central pulmonary arteries are dilated which can indicate elevated pulmonary nidhi rial pressure, pulmonary arterial hypertension. Pulmonary arteries are well opacified and without in traluminal filling defects, resolution of previously seen pulmonary emboli. No thoracic aortic diss ection. There is pleural-based right upper lobe nodule measuring 1.5 cm with lobular contour, appearance is m ost consistent with primary lung cancer. The right 4th rib is immediately overlying this which might make percutaneous biopsy challenging. There is mild emphysema and hyperinflation. There are no pleural or pericardial effusions. Tracheobronchial tree is patent. There is no media stinal, hilar or axillary lymphadenopathy. There is no pneumothorax. Heart normal in size. Ther e is mild to moderate coronary arterial calcification, arterial sclerosis. Gastric bypass. There is thoracic spondylosis without osteoblastic or osteolytic lesions identified. IMPRESSION: 1. Right upper lobe 1.5 cm pleural-based nodule, appearance most consistent with primary lung cancer . 2. Dilated pulmonary arteries without filling defects. 3. Mild emphysema. I left a message for Dr. Erma Kilpatrick MD's nurse Michaela on 11/05/2021 13:07 CDT. I provided conc erning right upper lobe nodule, my direct number, requested call back to discuss findings in this tiesha e. Reviewed, dictated and finalized at location A. IMPRESSION: 1. Right upper lobe 1.5 cm pleural-based nodule, appearance most consistent wi th primary lung cancer. 2. Dilated pulmonary arteries without filling defects. 3. Mild emphysema. I left a message for Dr. Erma Kilpatrick MD's nurse Michaela on 11/05/2021 13:07 CDT. I provided concerning right upper lobe nodule, my direct number, request ed call back to discuss findings in this case.
== END 2021-11-05 08:41 | disposition home or self-care (01) ==
LOC: CHSIMG 08:41
PROVIDERS: PCP Internal Medicine; Visit Provider Internal Medicine
DX: Z09 Encounter for follow-up examination after completed treatment for conditions other than malignant neoplasm (principal); I26.99 Other pulmonary embolism without acute cor pulmonale
CPT/HCPCS: 71275; Q9967

== ENCOUNTER 2021-12-09 11:35 | Outpatient (CLI) | payer MEDICARE, SELFPAY ==
[2021-12-09 12:13] LABS: Basophils Absolute Auto 0.04 K/mm3 (0.00-0.10); Basophils Percent Auto 0.4 % (0.0-1.0); Eosinophils Absolute Auto 0.07 K/mm3 (0.02-0.50); Eosinophils Percent Auto 0.8 % (1.0-6.0); Hematocrit 41.3 % (35.0-49.0); Hemoglobin 13.1 g/dL (12.0-15.0); Immature Granulocyte Absolute 0.11 K/mm3 (0.00-0.00); Immature Granulocyte Percent A 1.2 % (0.0-0.0); Lymphocytes Absolute Auto 1.98 K/mm3 (1.10-4.50); Lymphocytes Percent Auto 21.6 % (18.0-42.0); Mean Corpuscular HGB Conc 31.7 g/dL (32.0-36.0); Mean Corpuscular Hemoglobin 33.1 pg (27.0-31.0); Mean Corpuscular Volume 104.3 fL (78.0-102.0); Mean Platelet Volume 9.6 fl (9.2-11.8); Monocytes Absolute Auto 0.53 K/mm3 (0.10-0.90); Monocytes Percent Auto 5.8 % (2.0-11.0); Neutrophils Absolute Auto 6.5 K/mm3 (1.7-7.2); Neutrophils Percent Auto 70.2 % (50.0-70.0); Platelet Count Result 173 K/mm3 (150-420); Red Blood Count 3.96 M/mm3 (4.20-5.40); Red Cell Distribution Width 14.3 % (11.6-14.4); White Blood Count 9.2 K/mm3 (4.8-10.8)
[2021-12-09 12:30] LABS: INR 2.3; Prothrombin Time 23.5 Seconds (9.50-12.10)
[2021-12-09 14:01] LABS: Uric Acid 5.2 mg/dL (2.6-6.0)
[2021-12-09 14:09] LABS: CRP < 0.2 mg/dL (0.0-0.9)
== END 2021-12-09 11:36 | disposition home or self-care (01) ==
LOC: CHSLAB 11:38
PROVIDERS: PCP Internal Medicine; Visit Provider Internal Medicine
DX: M05.79 Rheumatoid arthritis with rheumatoid factor of multiple sites without organ or systems involvement (principal); M05.59 Rheumatoid polyneuropathy with rheumatoid arthritis of multiple sites; M10.9 Gout, unspecified; I26.99 Other pulmonary embolism without acute cor pulmonale; Z79.891 Long term (current) use of opiate analgesic
CPT/HCPCS: 36415; 80307; 80361; 84550; 85025; 85610; 86140; G0480

== ENCOUNTER 2021-12-16 09:06 | Outpatient (CLI) | payer MEDICARE, SELFPAY ==
[2021-12-16 09:22] LABS: Basophils Absolute Auto 0.04 K/mm3 (0.00-0.10); Basophils Percent Auto 0.4 % (0.0-1.0); Eosinophils Absolute Auto 0.08 K/mm3 (0.02-0.50); Eosinophils Percent Auto 0.8 % (1.0-6.0); Hematocrit 38.9 % (35.0-49.0); Hemoglobin 12.5 g/dL (12.0-15.0); Immature Granulocyte Absolute 0.07 K/mm3 (0.00-0.00); Immature Granulocyte Percent A 0.7 % (0.0-0.0); Immature Reticulocyte Fraction 11.7 % (2.0-16.52); Lymphocytes Absolute Auto 2.33 K/mm3 (1.10-4.50); Lymphocytes Percent Auto 23.4 % (18.0-42.0); Mean Corpuscular HGB Conc 32.1 g/dL (32.0-36.0); Mean Corpuscular Hemoglobin 33.5 pg (27.0-31.0); Mean Corpuscular Volume 104.3 fL (78.0-102.0); Mean Platelet Volume 9.4 fl (9.2-11.8); Monocytes Absolute Auto 0.88 K/mm3 (0.10-0.90); Monocytes Percent Auto 8.8 % (2.0-11.0); Neutrophils Absolute Auto 6.6 K/mm3 (1.7-7.2); Neutrophils Percent Auto 65.9 % (50.0-70.0); Platelet Count Result 158 K/mm3 (150-420); Red Blood Count 3.73 M/mm3 (4.20-5.40); Red Cell Distribution Width 14.3 % (11.6-14.4); Reticulocyte Hemoglobin Conten 36.4 pg (28.0-35.0); Reticulocytes Absolute 0.07 M/mm3 (0.02-0.1)
== END 2021-12-16 09:07 | disposition home or self-care (01) ==
PROVIDERS: PCP Internal Medicine; Visit Provider Internal Medicine
DX: D69.6 Thrombocytopenia, unspecified (principal); D64.9 Anemia, unspecified
CPT/HCPCS: 36415; 85025; 85046

== ENCOUNTER 2022-01-30 09:28 | Outpatient (RCR) | payer MEDICARE, SELFPAY ==
[2021-11-17 09:18] LABS: INR 4.1; Prothrombin Time 41.3 Seconds (9.50-12.10)
[2021-11-25 10:19] LABS: INR 3.5
[2021-12-02 12:53] LABS: INR 3.4; Prothrombin Time 34.2 Seconds (9.50-12.10)
[2022-01-15 13:05] LABS: INR 1.4; Prothrombin Time 15.4 Seconds (9.50-12.10)
[2022-01-22 10:27] LABS: INR 1.6; Prothrombin Time 17.2 Seconds (9.50-12.10)
[2022-01-30 09:50] LABS: INR 2.1; Prothrombin Time 21.3 Seconds (9.50-12.10)
== END 2022-02-15 23:59 | disposition home or self-care (01) ==
LOC: CHSLAB 09:28
PROVIDERS: PCP Internal Medicine; Visit Provider Internal Medicine
DX: I26.99 Other pulmonary embolism without acute cor pulmonale (principal)
CPT/HCPCS: 36415; 85610

== ENCOUNTER 2022-03-06 09:05 | Outpatient (CLI) | payer MEDICARE, SELFPAY ==
[2022-03-06 09:21] LABS: Basophils Absolute Auto 0.03 K/mm3 (0.00-0.10); Basophils Percent Auto 0.3 % (0.0-1.0); Eosinophils Absolute Auto 0.04 K/mm3 (0.02-0.50); Eosinophils Percent Auto 0.4 % (1.0-6.0); Hematocrit 39.2 % (35.0-49.0); Hemoglobin 12.7 g/dL (12.0-15.0); Immature Granulocyte Absolute 0.05 K/mm3 (0.00-0.00); Immature Granulocyte Percent A 0.5 % (0.0-0.0); Lymphocytes Absolute Auto 2.44 K/mm3 (1.10-4.50); Lymphocytes Percent Auto 26.1 % (18.0-42.0); Mean Corpuscular HGB Conc 32.4 g/dL (32.0-36.0); Mean Corpuscular Hemoglobin 32.5 pg (27.0-31.0); Mean Corpuscular Volume 100.3 fL (78.0-102.0); Mean Platelet Volume 9.4 fl (9.2-11.8); Monocytes Absolute Auto 1.01 K/mm3 (0.10-0.90); Monocytes Percent Auto 10.8 % (2.0-11.0); Neutrophils Absolute Auto 5.8 K/mm3 (1.7-7.2); Neutrophils Percent Auto 61.9 % (50.0-70.0); Platelet Count Result 212 K/mm3 (150-420); Red Blood Count 3.91 M/mm3 (4.20-5.40); Red Cell Distribution Width 14.7 % (11.6-14.4); White Blood Count 9.3 K/mm3 (4.8-10.8)
[2022-03-06 09:22] LABS: Add Urine Microscopic? YES; Appearance Urine Clear (Clear); Bilirubin Urine Negative (Negative); Blood Urine 3+ (Negative); Color Urine Yellow (Yellow); Glucose Urine UA Negative (Negative); Ketones Urine Negative (Negative); Leukocyte Esterase Ur Trace LEU/UL (Negative); Nitrate Urine Positive (Negative); Protein Urine 2+ (Negative); Urobilinogen Urine 0.2 mg/dL (0.2-1.0)
[2022-03-06 09:30] LABS: Bacteria Urine Trace /hpf; Squamous Epithelial Cell Urine Few /hpf (Few)
[2022-03-06 09:34] LABS: Hemoglobin A1C 5.5 % (<5.7)
[2022-03-06 09:37] LABS: Prothrombin Time 20.3 Seconds (9.50-12.10)
[2022-03-06 09:54] LABS: Alanine Aminotransferase 19 U/L (14-59); Albumin Level 3.1 g/dL (3.4-5.0); Alkaline Phosphatase 98 U/L (46-116); Anion Gap 5 mmol/L (8-16); Aspartate Amino Transferase 18 U/L (15-37); Bilirubin,Total 0.3 mg/dL (0.00-1.00); Blood Urea Nitrogen 35 mg/dL (7-18); Calcium 8.7 mg/dL (8.5-10.1); Carbon Dioxide 32 mmol/L (21-32); Chloride 104 mmol/L (98-108); Cholesterol 237 mg/dL (0-200); Estimated Glomerular Filt Rate > 60; Free T3 1.71 pg/mL (2.18-3.98); Free T4 Free Thyroxine 0.74 ng/dL (0.76-1.46); Glucose 94 mg/dL (70-99); HDL Direct 84 mg/dL (40-60); LDL Cholesterol Calculated 85 mg/dL (<130); Osmolality Calculated 300 mOsm/kg (285-295); Potassium 4.4 mmol/L (3.5-5.1); Sodium 141 mmol/L (136-145); Thyroid Stimulating Hormone 1.11 uIU/mL (0.36-3.74); Total Protein 6.4 g/dL (6.4-8.2); Triglycerides 338 mg/dL (0-150)
[2022-03-10 16:16] LABS: Vitamin D 25 Hydroxy 40 ng/mL (30-100)
== END 2022-03-06 09:06 | disposition home or self-care (01) ==
LOC: CHSLAB 09:07
PROVIDERS: PCP Internal Medicine; Visit Provider Internal Medicine
DX: R73.01 Impaired fasting glucose (principal); I10 Essential (primary) hypertension; E03.4 Atrophy of thyroid (acquired); E55.9 Vitamin D deficiency, unspecified; N39.0 Urinary tract infection, site not specified; E78.2 Mixed hyperlipidemia; Z79.01 Long term (current) use of anticoagulants; I26.99 Other pulmonary embolism without acute cor pulmonale
CPT/HCPCS: 36415; 80053; 80061; 81001; 82306; 83036; 84439; 84443; 84481; 85025; 85610; 87077; 87086; 87088; 87186

== ENCOUNTER 2022-03-15 09:51 | Outpatient (RCR) | payer MEDICARE, SELFPAY ==
[2022-03-14] MEDS: cefTRIAXone 2 GM VIAL IM (11:21)
--- NOTE | 2022-03-14 11:21 | PC.NURSE ---
Patient here to receive IM Rocephin injection for UTI. Given in left ventrogluteal. Patient tolerated well. Denies any question or concerns at this time. Left floor ambulatory.
[2022-03-15] MEDS: cefTRIAXone 2 GM VIAL IM (10:05)
--- NOTE | 2022-03-15 10:10 | PC.NURSE ---
Patient here to receive IM injection of antibiotic for UTI. Patient tolerated injection well. Bandaid placed over site. Denies any questions or concerns at this time. Patient left floor ambulatory.
== END 2022-06-12 23:59 | disposition home or self-care (01) ==
LOC: CHSTREATRM 09:51
PROVIDERS: PCP Internal Medicine; Visit Provider Internal Medicine
DX: N39.0 Urinary tract infection, site not specified (principal)
CPT/HCPCS: 96372; J0696; J0713

== ENCOUNTER 2022-04-20 11:37 | Outpatient (CLI) | payer MEDICARE, SELFPAY ==
[2022-04-20 12:03] LABS: INR 1.9; Prothrombin Time 20.1 Seconds (9.50-12.10)
[2022-04-20 12:18] LABS: Free T4 Free Thyroxine 1.02 ng/dL (0.76-1.46)
== END 2022-04-20 11:38 | disposition home or self-care (01) ==
LOC: CHSLAB 11:40
PROVIDERS: PCP Internal Medicine; Visit Provider Internal Medicine
DX: E03.4 Atrophy of thyroid (acquired) (principal); I26.99 Other pulmonary embolism without acute cor pulmonale
CPT/HCPCS: 36415; 84439; 84443; 84481; 85610

== ENCOUNTER 2022-05-15 11:11 | Outpatient (RCR) | payer MEDICARE, SELFPAY ==
[2022-04-28 11:12] LABS: INR 1.2
[2022-05-07 10:55] LABS: INR 4.7; Prothrombin Time 46.1 Seconds (9.64-11.0)
[2022-05-15 11:31] LABS: INR 3.1; Prothrombin Time 31.1 Seconds (9.50-12.10)
== END 2022-07-27 23:59 | disposition home or self-care (01) ==
LOC: CHSLAB 11:11
PROVIDERS: PCP Internal Medicine; Visit Provider Internal Medicine
DX: I26.99 Other pulmonary embolism without acute cor pulmonale (principal)
CPT/HCPCS: 36415; 85610

== ENCOUNTER 2022-06-29 10:34 | Outpatient (RCR) | payer MEDICARE, SELFPAY ==
[2022-06-22 11:11] LABS: INR 1.8; Prothrombin Time 18.4 Seconds (9.50-12.10)
[2022-06-29 10:58] LABS: INR 2.1; Prothrombin Time 21.6 Seconds (9.50-12.10)
== END 2022-09-20 23:59 | disposition home or self-care (01) ==
LOC: CHSLAB 10:34
PROVIDERS: PCP Internal Medicine; Visit Provider Internal Medicine
DX: I26.99 Other pulmonary embolism without acute cor pulmonale (principal)
CPT/HCPCS: 36415; 85610

== ENCOUNTER 2022-08-07 12:07 | Outpatient (CLI) | payer MEDICARE, SELFPAY ==
--- NOTE | ~2022-08-07 | DEXA_ITS ---
Bone Density Report Name: MAYE ANTON Age: 62 Sex: Female Ethnicity: White Date of : 1960 Indication: postmenopausal; screening for osteoporosis; height loss; cancer; asthma or emphysema; hysterectomy; rheumatoid arthritis; Referring Provider: Erma Kilpatrick Study: Bone densitometry was performed. Exam Date: August 07, 2022 Accession number: [id number] Bone Density: Region BMD T-score Z-score Classification AP Spine(L1-L4) 0.834 -1.9 -0.3 Osteopenia Femoral Neck (Left) 0.553 -2.7 -1.2 Osteoporosis Total Hip (Left) 0.732 -1.7 -0.6 Osteopenia Femoral Neck (Right) 0.612 -2.1 -0.7 Osteopenia Total Hip (Right) 0.727 -1.8 -0.6 Osteopenia Femoral Neck Mean 0.583 -2.4 -1.0 Osteopenia Total Hip Mean 0.729 -1.7 -0.6 Osteopenia World Health Organization criteria for BMD impression classify patients as: Normal (T-score at or above -1.0), Osteopenia (T-score between -1.0 and -2.5), or Osteoporosis (T-score at or below -2.5). 10-year Fracture Risk: FRAX not reported because: Some T-score for Spine Total or Hip Total or Femoral Neck at or below -2.5 Clinical Information Provided by Patient: Has rheumatoid arthritis Has used the following medications: Vitamin D, Calcium Has the following medical conditions: Asthma or Emphysema, Cancer, Hysterectomy Patient maximum height was 63 Menopause Age: 27 No regular weight bearing exercise Drinks caffeinated beverages Onset of menses at age 15 Number of children 1 Missed period for more than 6 months in a row Impression: The patient has osteoporosis, based on the Left Femoral Neck T-score. Discussion: INCREASED RISK OF FRACTURE. BONE DENSITY IS UNDESIRABLY LOW AT ONE OR MORE SKELETAL SITES, CONSISTENT WITH POSTMENOPAUSAL OSTEOPOROSIS. This patient's lowest T-score meets the World Health Organization's (WHO) criteria for osteoporosis at one or more sites (T-score -2.5 or below). In untreated patients, the risk of osteoporotic fracture increases approximately two-fold for each 1.0 SD decrease in T-score. Low bone density is not the only risk factor for fracture; also consider factors such as patient's age, frailty or poor health, risk of falling, risk of injury, previous osteoporotic fracture, family history of osteoporosis, cigarette smoking, low body weight, etc. Not everyone with low bone mineral density has osteoporosis; osteomalacia and other metabolic bone disorders should also be considered. Patients who have osteoporosis should be evaluated for specific diseases and conditions (secondary causes) that may cause or contribute to bone loss. The [place] Association [employer] Clinical Endocrinologists (AACE) and National Osteoporosis Foundation (NOF) recommend pharmacologic intervention for all postmenopausal women whose T-score is in
--- NOTE | ~2022-08-07 | MM_ITS ---
EXAMINATION: MM screening thelma BI w monica HISTORY: Screening mammogram TECHNIQUE: Craniocaudal and mediolateral oblique 3-D tomosynthesis images were obtained and synthetic 2-D images were generated. CAD analysis was submitted and interpreted. COMPARISON: 03/20/2021, 03/07/2020, 09/28/2017 bilateral screening mammogram examinations BREAST PARENCHYMAL COMPOSITION: There are scattered areas of fibroglandular density. FINDINGS: There is no evidence of suspicious mass, calcification, or architectural distortion to sugg est malignancy in either breast. There has been no suspicious interval change. IMPRESSION: 1. No mammographic evidence of malignancy. 2. Recommend routine screening mammography in one year. 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
== END 2022-08-07 12:08 | disposition home or self-care (01) ==
PROVIDERS: PCP Internal Medicine; Visit Provider Internal Medicine
DX: Z12.31 Encounter for screening mammogram for malignant neoplasm of breast (principal); Z78.0 Asymptomatic menopausal state; M85.89 Other specified disorders of bone density and structure, multiple sites; M81.0 Age-related osteoporosis without current pathological fracture
CPT/HCPCS: 77063; 77067; 77080

== ENCOUNTER 2022-08-12 15:52 | Outpatient (RCR) | payer MEDICARE, SELFPAY ==
[2022-08-12 16:21] LABS: INR 1.5; Prothrombin Time 15.6 Seconds (9.50-12.10)
== END 2022-11-10 23:59 | disposition home or self-care (01) ==
LOC: CHSLAB 15:52
PROVIDERS: PCP Internal Medicine; Visit Provider Internal Medicine
DX: Z51.81 Encounter for therapeutic drug level monitoring (principal); Z79.01 Long term (current) use of anticoagulants
CPT/HCPCS: 36415; 85610

== ENCOUNTER 2022-10-01 15:39 | Outpatient (CLI) | payer MEDICARE, SELFPAY ==
--- NOTE | ~2022-10-01 | XR_ITS ---
EXAMINATION: XR ankle RT min 3V DATE: 10/01/2022 16:09 INDICATION: Lateral right ankle pain and swelling TECHNIQUE: Anteroposterior, oblique, mortise, and lateral views of the right ankle were obtained. COMPARISON: None. FINDINGS: Alignment is normal. No fracture. Joint spaces are normal. No evident ankle joint effusion. Prior avu lsion fracture at the tip of the lateral malleolus has healed. Tiny residual either nonunited fractur e fragment or heterotopic ossicle related to an earlier injury near the tip of the lateral malleolus. There is soft tissue swelling overlying the lateral malleolus. IMPRESSION: 1. Interval healing of an avulsion fracture at the tip of the lateral malleolus. No acute osseous abn ormality. Reviewed, dictated and finalized at location L. IMPRESSION: 1. Interval healing of an avulsion fracture at the tip of the lateral malleolus . No acute osseous abnormality.
== END 2022-10-01 15:40 | disposition home or self-care (01) ==
LOC: CHSIMG 15:40
PROVIDERS: PCP Internal Medicine; Visit Provider Nurse Practitioner Family
DX: M25.571 Pain in right ankle and joints of right foot (principal); M79.89 Other specified soft tissue disorders; S82.61XD Displaced fracture of lateral malleolus of right fibula, subsequent encounter for closed fracture with routine healing
CPT/HCPCS: 73610

== ENCOUNTER 2022-10-12 08:46 | Outpatient (CLI) | payer MEDICARE, SELFPAY ==
--- NOTE | ~2022-10-12 | CT_ITS ---
EXAMINATION: CTA chest PE protocol DATE: 10/12/2022 09:48 INDICATION: Pulmonary embolism follow-up. Lung cancer. TECHNIQUE: Computed tomography angiography (CTA) of the chest was performed with 100 mL Omnipaque-350 intravenous contrast timed to evaluate the pulmonary arteries. Coronal maximum intensity projection 3D-reconstructions were created by the technologist. Automated exposure control and iterative reconst ruction technique were employed. Exam dose: 846.31 mGy-cm total exam DLP. COMPARISON: 11/05/2021 CT pulmonary scan FINDINGS: Residual approximately 4 x 7 mm lateral right upper lobe pleural-based opacity and adjacent small linear discoid opacities, dramatically diminished in size from approximately 9.6 x 15 mm dimen nelida solid mass on 11/05/2021. Approximately 4 mm in right upper lobe mass (series 4 image 43). Lungs are clear of infiltrate or consolidation. There are calcified mediastinal and hilar nodes and calcified granulomas consistent with old pulmonar y granulomatous disease. There is diagnostic contrast enhancement of the pulmonary arteries and no evidence of pulmonary embo lism. There is thoracic aortic aneurysm or dissection. Normal heart size. No pericardial or pleural effusio n. Small sliding hiatal hernia. Postoperative change of the stomach. Status post cholecystectomy Calcified hepatic and splenic granulomas. The adrenal glands are unremarkable. Status post lower anterior cervical spine surgical fusion. IMPRESSION: Near complete resolution of lateral right upper lobe mass since 11/05/2021 New approximately 4 mm right upper lobe mass since 11/05/2021 No pulmonary embolism Old granulomatous disease Small sliding hiatal hernia Postoperative change of the stomach Status post cholecystectomy Reviewed, dictated and finalized at [facility]. Reviewed, dictated and finalized at [facility]. IMPRESSION: Near complete resolution of lateral right upper lobe mass since New approximately 4 mm right upper lobe mass since 11/05/2021 No pulmonary embolism Old granulomatous disease Small sliding hiatal hernia Postoperative change of the stomach Status post cholecystectomy
[2022-10-12 09:12] LABS: Estimated Glomerular Filt Rate 51
== END 2022-10-12 08:47 | disposition home or self-care (01) ==
LOC: CHSIMG 08:47
PROVIDERS: PCP Internal Medicine; Visit Provider Internal Medicine
DX: I26.99 Other pulmonary embolism without acute cor pulmonale (principal); R91.8 Other nonspecific abnormal finding of lung field; K44.9 Diaphragmatic hernia without obstruction or gangrene; Z90.49 Acquired absence of other specified parts of digestive tract
CPT/HCPCS: 71275; Q9967

== ENCOUNTER 2022-10-14 10:42 | Outpatient (CLI) | payer MEDICARE, SELFPAY ==
[2022-10-14 11:00] VITALS: PULSE 84; O2SAT 95
[2022-10-14 11:02] VITALS: PULSE 86; O2SAT 87
[2022-10-14 11:07] VITALS: PULSE 84; O2SAT 93
--- NOTE | 2022-10-14 11:13 | HOMEO2EVAL ---
Evaluation was performed at [facility] [place] Home Oxygen Evaluation RC: Home Oxygen (O2) Evaluation Start: 10/14/22 11:05 Freq: Status: Active Protocol: RPE Activity Type Activity Date Activity User E-sign Co-sign Detail Recorded Client Recorded Date Recorded By Document 10/14/22 11:00 SHANICE [email or web address] 10/14/22 11:13 SJB Document 10/14/22 11:02 SJB [email or web address] 10/14/22 11:13 SJB Document 10/14/22 11:07 SJB [email or web address] 10/14/22 11:13 SJB 10/14/22 10/14/22 10/14/22 11:00 11:02 11:07 Home O2 Evaluation [Oxygen] -Test Phase Resting Exercise Exercise -Oxygen Delivery Room Air Room Air Nasal Cannula -Oxygen Flow Rate (L/min) 1 [Pulse Oximetry] -Pulse Oximetry (90-100 %) 95 87 L 93 [Pulse Rate] -Pulse Rate (60-100 beats/min) 84 86 84 [Evaluation] -Activity Tolerance Good Good -Rating of Perceived Dyspnea (PD) +2 Mild, Some +3 Moderate Difficulty, Difficulty, But Noticeable to Can Continue the Observer -Rate of Perceived Exertion (PE) 11 Fairly light 13 Somewhat Query Text:Click the Protocol Button Hard to View the RPE Scale [Exercise] -Ambulation Distance (feet) 280 450 -Ambulation Distance (meters) 85.33 137.15 [Comments] -Home Oxygen Evaluation Comments Will start walk Sp02 dropped to After a total on room air, 87% after 280 walk of 720 ft, pushing w/c. ft. Pt will be the patient started on 1 continued and lpm. After 1 finished on 1 minute, pt's lpm O2, keeping sp02 came up to her sp02 at 93 98% with PLB % and above. encouraged. HR stayed between 84-98. PLB needed to be reinforced. [Charges] -Treatment Charges O2 Evaluation - Outpatient
== END 2022-10-14 10:43 | disposition home or self-care (01) ==
LOC: CHSCARD 10:44
PROVIDERS: PCP Internal Medicine; Visit Provider Internal Medicine
DX: R06.02 Shortness of breath (principal)
CPT/HCPCS: 94618

== ENCOUNTER 2022-11-02 11:05 | Emergency (ER) | payer MEDICARE, SELFPAY ==
--- NOTE | ~2022-11-02 | CT_ITS ---
EXAMINATION: CT abdomen pelvis wo con DATE: 11/02/2022 12:20 INDICATION: Epigastric and mid abdominal pain, nausea, vomiting for 3 days. Frequent urination. TECHNIQUE: Computed tomography (CT) of the abdomen and pelvis was performed without intravenous contr ast. Automated exposure control and iterative reconstruction technique were employed. Exam dose: 118 5.37 mGy-cm total exam DLP. COMPARISON: 08/07/[address] abdomen pelvis FINDINGS: Calcified posterior basilar right lower lobe pulmonary granuloma and multiple hepatic and c alcified splenic granulomas, consistent with old granulomatous disease. No infiltrate or consolidation at the lung bases. Normal heart size. No pericardial or pleural effusi on. Status post cholecystectomy. No hepatic, splenic, pancreatic, and adrenal space-occupying mass lesion . Multiple bilateral renal cysts are again noted. No urinary tract calculus or hydroureteronephrosis. There is atherosclerotic calcification but normal caliber of the abdominal aorta. No intraperitoneal or retroperitoneal or pelvic mass lesion or adenopathy or ascites. Status post hysterectomy. The urinary bladder is largely evacuated but otherwise unremarkable. Probable appendectomy. No bowel obstruction or intraperitoneal free air. Small fat-containing umbilical hernia. No suspicious osteolytic or osteoblastic lesions. There is grade 1 anterolisthesis at L4-5 due to deg enerative change at the apophyseal joints. There is mild retrolisthesis at L3-4. IMPRESSION: Status post cholecystectomy Bilateral renal cysts Status post hysterectomy and probable appendectomy Reviewed, dictated and finalized at [facility]. Reviewed, dictated and finalized at location [facility].
[2022-11-02 11:05] VITALS: BP 134/65; PULSE 105; RESP 20; O2SAT 96
--- NOTE | 2022-11-02 11:26 | ECG_ITS ---
Measurements Intervals [place] Rate: 91 P: 65 CO: 166 QRS: 200 QRSD: 93 T: 57 QT: 345 QTc: 426 Interpretive Statements BASELINE ARTIFACT/REDUCED ECG QUALITY SINUS RHYTHM RIGHT AXIS DEVIATION [QRS AXIS > 100] ABNORMAL ECG NO PREVIOUS ECG AVAILABLE FOR COMPARISON Electronically Signed On 11-03-2022 7:15:57 CDT by Donn Salmeron M.D.
--- NOTE | 2022-11-02 11:28 | ED.GENADULT ---
HPI - General Adult General Chief complaint: Abdominal Pain Stated complaint: abdominal pain and urinary frequency Time Seen by Provider: 11/02/22 11:18 History of Present Illness HPI narrative: The patient is a 62-year-old woman with history of right upper lobe lung cancer status post radiation therapy recently, who is on oxygen as needed, ex-smoker, prior multiple operations including Paige-en-Y gastric bypass 2017, left TKA, Cervical discectomy, hysterectomy, cholecystectomy, appendectomy, corpus luteum hematoma resection, and prior . history of rheumatoid arthritis and systemic lupus erythematosus, COPD, pulmonary emboli, hypertension, diabetes, hypothyroidism, fibromyalgia, NAA, hyperlipidemia, GERD. She does take prednisone 5 mg PO daily, and Humira for her RA. She takes oral morphine at home as needed but not every day. She does take TRAMADOL nightly. She is on warfarin for her PE history. She is on chronic BID doxycycline. She presents with 4 day history of epigastric abdominal discomfort, intermittent in nature, waxing and waning in intensity, not radiating elsewhere in the abdomen, associated with nausea and dry heaves, and dizziness. She feels off balance with ambulation. is passing flatus, had a small bowel movement this morning. Does have urinary frequency and urgency but no dysuria. She went to the office today, a dip urine was negative. She was sent here for further evaluation. She denies any chest pain or dyspnea. No headache. Does complain of mild rhinorrhea but no nasal congestion or sore throat. Has some crusty mucus in her eyes when she woke up this morning but otherwise no issues. Related Data Home Medications Medication Instructions Recorded Confirmed adalimumab 40 mg/0.8 mL 40 mg subcut ONCE 11/02/22 11/02/22 subcutaneous syringe kit (Humira) albuterol sulfate 90 mcg/actuation 2 puff inhalation Q6-8H 11/02/22 11/02/22 aerosol inhaler allopurinol 300 mg tablet 100 mg PO DAILY 11/02/22 11/02/22 alprazolam 0.5 mg tablet 0.5 mg PO Q6-8H PRN Anxiety 11/02/22 11/02/22 buspirone 15 mg tablet 15 mg PO DAILY 11/02/22 11/02/22 calcitriol 0.5 mcg capsule 1 mcg PO DAILY 11/02/22 11/02/22 carvedilol 25 mg tablet 25 mg PO BID 11/02/22 11/02/22 doxycycline hyclate 100 mg tablet 100 mg PO BID 11/02/22 11/02/22 duloxetine 60 mg capsule,delayed 60 mg PO DAILY 11/02/22 11/02/22 release ergocalciferol (vitamin D2) 1,250 1,250 mcg PO DAILY 11/02/22 11/02/22 mcg (50,000 unit) capsule ezetimibe 10 mg tablet 10 mg PO DAILY 11/02/22 11/02/22 fluticasone propionate 220 2 puff inhalation Q12H 11/02/22 11/02/22 mcg/actuation HFA aerosol inhaler folic acid 1 mg tablet 1 mg PO DAILY 11/02/22 11/02/22 furosemide 20 mg tablet 20 mg PO DAILY 11/02/22 11/02/22 ipratropium 20 mcg-albuterol 100 1 puff inhalation QID 11/02/22 11/02/22 mcg/actuation mist for inhalation (Combivent Respimat) lansoprazole 30 mg capsule,delayed 30 mg PO BID 11/02/22 11/02/22 release levothyroxine 75 mcg tablet 75 mcg PO DAILY 11/02/22 11/02/22 lisinopril 40 mg tablet 20 mg PO DAILY 11/02/22 11/02/22 morphine 15 mg tablet,extended 15 mg PO DAILY PRN Pain 11/02/22 11/02/22 release mupirocin 2 % topical ointment 1 applic topical TID 11/02/22 11/02/22 potassium chloride 10 mEq 10 meq PO DAILY 11/02/22 11/02/22 tablet,extended release pregabalin 150 mg capsule 150 mg PO BID 11/02/22 11/02/22 tramadol 50 mg tablet 50 mg PO BID PRN Pain 11/02/22 11/02/22 trazodone 150 mg tablet 150 mg PO HS 11/02/22 11/02/22 Allergies Allergy/AdvReac Type Severity Reaction Status Date / Time erythromycin base Allergy Unknown Hives Verified 11/02/22 11:21 Penicillins Allergy Unknown Hives Verified 11/02/22 11:21 Sulfa (Sulfonamide Allergy Unknown Hives Verified 11/02/22 11:21 Antibiotics) sumatriptan Allergy Unknown Hives Verified 11/02/22 11:21 Review of Systems Review of Systems: All systems reviewed & are unremarkable except as note
[2022-11-02] MEDS: SODIUM CHLORIDE 0.9% IV 1,000 ML 999 ML IV CONT (11:36)
[2022-11-02 11:38] VITALS: TEMP 35.4
[2022-11-02] MEDS: METOCLOPRAMIDE HCL INJ 10 MG/2 ML VIAL IV PUSH (11:38)
[2022-11-02] MEDS: ONDANSETRON INJ 4 MG/2 ML VIAL IV PUSH ×2 (11:40→13:43)
[2022-11-02] MEDS: MORPHINE SULFATE (*CRX) 4 MG/ML INJ IV PUSH ×2 (11:41→13:43)
[2022-11-02 11:46] LABS: Basophils Absolute Auto 0.04 K/mm3 (0.00-0.10); Basophils Percent Auto 0.4 % (0.0-1.0); Eosinophils Absolute Auto 0.12 K/mm3 (0.02-0.50); Eosinophils Percent Auto 1.1 % (1.0-6.0); Hematocrit 39.2 % (35.0-49.0); Immature Granulocyte Absolute 0.06 K/mm3 (0.00-0.00); Immature Granulocyte Percent A 0.5 % (0.0-0.0); Lymphocytes Absolute Auto 2.46 K/mm3 (1.10-4.50); Lymphocytes Percent Auto 22.3 % (18.0-42.0); Mean Corpuscular HGB Conc 33.2 g/dL (32.0-36.0); Mean Corpuscular Hemoglobin 33.5 pg (27.0-31.0); Mean Platelet Volume 10.2 fl (9.2-11.8); Monocytes Absolute Auto 1.05 K/mm3 (0.10-0.90); Monocytes Percent Auto 9.5 % (2.0-11.0); Neutrophils Absolute Auto 7.3 K/mm3 (1.7-7.2); Neutrophils Percent Auto 66.2 % (50.0-70.0); Platelet Count Result 191 K/mm3 (150-420); Red Blood Count 3.88 M/mm3 (4.20-5.40); Red Cell Distribution Width 14.4 % (11.6-14.4)
[2022-11-02 12:17] LABS: Alanine Aminotransferase 25 U/L (14-59); Alkaline Phosphatase 139 U/L (46-116); Amylase 39 U/L (25-115); Anion Gap 9 mmol/L (8-16); Aspartate Amino Transferase 31 U/L (15-37); Bilirubin,Total 0.3 mg/dL (0.00-1.00); Blood Urea Nitrogen 37 mg/dL (7-18); Carbon Dioxide 29 mmol/L (21-32); Chloride 102 mmol/L (98-108); Estimated CRCL calculation 47 ml/min; Estimated Glomerular Filt Rate 46; Glucose 99 mg/dL (70-99); Lactic Acid Reflex 1.3 mmol/L (0.4-2.0); Lipase 15 U/L (16-77); Osmolality Calculated 298 mOsm/kg (285-295); Potassium 4.2 mmol/L (3.5-5.1); Sodium 140 mmol/L (136-145); Total Protein 6.8 g/dL (6.4-8.2); Troponin I 10.7 ng/L (0.00-60.4)
[2022-11-02 12:21] LABS: Influenza A QL RT-PCR Negative (Negative); Influenza B QL RT-PCR Negative (Negative); SARS-CoV-2 RNA PCR Negative (Negative)
[2022-11-02 12:29] LABS: Appearance Urine Clear (Clear); Bilirubin Urine Negative (Negative); Blood Urine Negative (Negative); Color Urine Light Yellow (Yellow); Glucose Urine UA Negative (Negative); Ketones Urine Negative (Negative); Leukocyte Esterase Ur Trace LEU/UL (Negative); Nitrate Urine Negative (Negative); Protein Urine Negative (Negative); Specific Grav Ur 1.015 (1.010-1.020); Urobilinogen Urine 0.2 mg/dL (0.2-1.0); pH Urine 5.5 (5.0-8.0)
[2022-11-02 12:30] VITALS: BP 118/69; PULSE 95; RESP 98; TEMP 36
[2022-11-02 12:31] LABS: RSV RNA, RT-PCR Negative (Negative)
[2022-11-02 12:31] LABS: INR 0.9; Partial Thromboplastin Time 27.2 SEC (23.90-30.70); Prothrombin Time 9.8 Seconds (9.50-12.10)
[2022-11-02] MEDS: SODIUM CHLORIDE 0.9% IV 1,000 ML 150 ML IV CONT (12:32)
[2022-11-02 12:40] LABS: Add Urine Microscopic? YES; RBC Urine None seen /hpf (0-2); Squamous Epithelial Cell Urine Few /hpf (Few); WBC Urine 0-3 /hpf (0-3)
[2022-11-02 12:41] LABS: Bacteria Urine Rare /hpf
[2022-11-02 13:25] VITALS: BP 100/72; PULSE 97; RESP 18; O2SAT 97
[2022-11-02] MEDS: MAG HYDROX/ALUMINUM HYD/SIMETH 30 ML, PHENobarb/HYOSCY/ATROPINE/SCOP 32.4 MG, LIDOCAINE... PO (13:45)
== END 2022-11-02 14:15 | disposition home or self-care (01) ==
PROVIDERS: Emergency Provider Emergency Medicine; PCP Internal Medicine
DX: R10.13 Epigastric pain (principal); R11.0 Nausea; R42 Dizziness and giddiness; C34.11 Malignant neoplasm of upper lobe, right bronchus or lung; I10 Essential (primary) hypertension; E11.9 Type 2 diabetes mellitus without complications; E03.9 Hypothyroidism, unspecified; M06.9 Rheumatoid arthritis, unspecified; M32.9 Systemic lupus erythematosus, unspecified; Z86.711 Personal history of pulmonary embolism; Z99.81 Dependence on supplemental oxygen; Z79.891 Long term (current) use of opiate analgesic; Z79.899 Other long term (current) drug therapy; Z87.891 Personal history of nicotine dependence; Z20.822 Contact with and (suspected) exposure to COVID-19
CPT/HCPCS: 36415; 74176; 80053; 81001; 82150; 83605; 83690; 84484; 85025; 85610; 85730; 87637; 93005; 96361; 96374; 96375; 96376; 99284; A9270; J2270; J2405; J2765; J7030

== ENCOUNTER 2022-12-04 14:25 | Outpatient (RCR) | payer MEDICARE, SELFPAY ==
--- NOTE | 2022-12-04 15:16 | PTOPEVAL1 ---
Assessment and note entered by JT File, PT Evaluation Information Assessment Status Evaluation Diagnosis unsteady gait Onset 11/30/22 Subjective Information patient reports she is having a lot of balance issues. she reports she is falling a lot. she reports she is unstable on her feet and she is unsure why. she reports it has gotten really bad. she reports she will wake up and feel unsteady from the moment she wakes up. she reports the last time she fell she hurt herself pretty bad. she reports she has had 4 falls in the last 3 months. she reports she has gradually been getting worse in balance for the past 6 months to a year. she reports she has began using a cane to help her balance. she reports she would like to get back to walking better. she reports she is complicated by some SOA issues and uses supplemental O2 to assist. she would like to get out and live her life outside of her home. she reports prior to her balance issues beginning she was able to walk 3-4 stores without issues, but now she has to have assist of an AD and supplemental O2 to get to one store. Reported Pain Level Pain Score 0: Self Report Assessment PT Clinical Summary mrs. wolf is a 62 yo woman who presents to skilled PT services for evaluation and treatment of unsteady gait and poor balance. upon evaluation today, patient presents with moderate fall risk, decreased endurance, and poor righting reactions/ proprioception due to neuropathy and poor CV health. she would benefit from skilled PT services to improve her objective/functional deficits and progress towards a return to her prior level functional activity performance, safety, and quality of life. Plan of Care Interventions Gait Training,Neuro Re-education,Patient/Caregiver Educati,Therapeutic Activities,Therapeutic Exercise PT Services Indicated Yes Treatment Frequency and 3x weekly for 12 visits Duration These treatments will address the objective and functional deficits as defined above. The patient will be advanced safely and appropriately in order for the patient to progress towards his/her prior level of function. Additional exercises will be introduced and as well as a comprehensive home exercise program upon discharge, if needed, ?to ensure carryover of functional gains achieved in the clinic. This treatment plan has been reviewed and agreement upon by the patient.
== END 2022-12-07 13:47 | disposition home or self-care (01) ==
LOC: CHSPT 14:25
PROVIDERS: PCP Internal Medicine; Visit Provider Internal Medicine
DX: R26.81 Unsteadiness on feet (principal)
CPT/HCPCS: 97110; 97161

== ENCOUNTER 2023-01-21 09:52 | Outpatient (CLI) | payer MEDICARE, SELFPAY ==
--- NOTE | ~2023-01-21 | MR_ITS ---
EXAMINATION: MR ankle RT wo/w con DATE: 01/21/2023 10:59 INDICATION: Right ankle pain. Osteomyelitis. Chronic wound at the lateral malleolus. TECHNIQUE: Magnetic resonance imaging (MRI) of the right ankle was performed without intravenous cont rast. Sequences included sagittal, coronal, and axial proton-density weighted fast spin echo without and with fat saturation. COMPARISON: None. FINDINGS: Medial ankle ligaments: Deep and superficial deltoid ligaments as well as the spring ligament are normal. Lateral ankle ligaments: The anterior and posterior inferior tibiofibular ligaments are normal. Old healed avulsion fracture i rregular cortical contour at the tip of the lateral malleolus and tiny nonunited fracture fragment at the talar side of the calcaneofibular ligament. The anterior talofibular, calcaneofibular and deputy district [employer] director ior talofibular ligaments are normal. Tendons: Achilles tendon is normal. The peroneus longus and brevis tendons are normal. The tibialis anterior a nd extensor hallucis longus and extensor digitorum longus tendons are normal. The tibialis posterior, flexor digitorum longus and flexor hallucis longus tendons are normal. Plantar fascia: Plantar aponeurosis is normal. Bones/other: Bone alignment is normal. No acute fracture. Focal soft tissue edema and non masslike enhancement ove rlying the lateral malleolus. There appears to be an overlying small shallow skin ulceration. No unde rlying abscess. Bone marrow signal is normal with no evident osteomyelitis. Joint spaces are normal. Fluid: Physiologic amount fluid in the joint spaces. No bursitis, tenosynovitis, abscess or other abnormal f luid collections. IMPRESSION: 1. Small skin ulceration and focal underlying subcutaneous edema and non masslike enhancement consist ent with cellulitis overlying the lateral malleolus. No abscess or osteomyelitis. 2. Old healed avulsion fracture at the tip of the lateral malleolus. Reviewed, dictated and finalized at location [facility]. IMPRESSION: 1. Small skin ulceration and focal underlying subcutaneous edema and non massli ke enhancement consistent with cellulitis overlying the lateral malleolus. No a bscess or osteomyelitis. 2. Old healed avulsion fracture at the tip of the lateral malleolus.
== END 2023-01-21 09:53 | disposition home or self-care (01) ==
LOC: CHSIMG 09:53
PROVIDERS: PCP Internal Medicine; Visit Provider Internal Medicine
DX: M25.571 Pain in right ankle and joints of right foot (principal); M86.8X7 Other osteomyelitis, ankle and foot; M79.89 Other specified soft tissue disorders; Z87.81 Personal history of (healed) traumatic fracture
CPT/HCPCS: 73723; A9577

== ENCOUNTER 2023-03-26 08:45 | Outpatient (CLI) | payer MEDICARE, SELFPAY ==
--- NOTE | ~2023-03-26 | US_ITS ---
EXAMINATION: US venous doppler [facility] DATE: 03/26/2023 09:25 INDICATION: Left lower limb swelling TECHNIQUE: Cui scale images without and with compression and Doppler images of the left lower extrem ity veins were obtained. COMPARISON: None FINDINGS: There is thrombosis of the left common femoral vein, profunda femoral vein, femoral vein, a nd popliteal vein. The peroneal trunk, posterior tibial veins, and greater saphenous vein are patent. IMPRESSION: 1. Deep venous thrombosis of the left common femoral vein, profunda femoral vein, femoral vein, and p opliteal vein. Reviewed, dictated and finalized at location [facility]. IMPRESSION: 1. Deep venous thrombosis of the left common femoral vein, profunda femoral vei n, femoral vein, and popliteal vein.
[2023-03-26 09:32] LABS: Basophils Absolute Auto 0.05 K/mm3 (0.00-0.10); Basophils Percent Auto 0.4 % (0.0-1.0); Eosinophils Absolute Auto 0.16 K/mm3 (0.02-0.50); Eosinophils Percent Auto 1.4 % (1.0-6.0); Hematocrit 36.6 % (35.0-49.0); Hemoglobin 11.4 g/dL (12.0-15.0); Immature Granulocyte Absolute 0.24 K/mm3 (0.00-0.00); Immature Granulocyte Percent A 2.1 % (0.0-0.0); Lymphocytes Absolute Auto 2.34 K/mm3 (1.10-4.50); Lymphocytes Percent Auto 20.3 % (18.0-42.0); Mean Corpuscular HGB Conc 31.1 g/dL (32.0-36.0); Mean Corpuscular Hemoglobin 31.4 pg (27.0-31.0); Mean Corpuscular Volume 100.8 fL (78.0-102.0); Mean Platelet Volume 9.3 fl (9.2-11.8); Monocytes Absolute Auto 1.45 K/mm3 (0.10-0.90); Monocytes Percent Auto 12.6 % (2.0-11.0); Neutrophils Absolute Auto 7.3 K/mm3 (1.7-7.2); Neutrophils Percent Auto 63.2 % (50.0-70.0); Platelet Count Result 159 K/mm3 (150-420); Red Blood Count 3.63 M/mm3 (4.20-5.40); Red Cell Distribution Width 15.1 % (11.6-14.4); White Blood Count 11.5 K/mm3 (4.8-10.8)
[2023-03-26 09:46] LABS: Alanine Aminotransferase 15 U/L (14-59); Albumin Level 2.5 g/dL (3.4-5.0); Alkaline Phosphatase 132 U/L (46-116); Anion Gap 5 mmol/L (8-16); Aspartate Amino Transferase 15 U/L (15-37); Bilirubin,Total 0.3 mg/dL (0.00-1.00); Blood Urea Nitrogen 20 mg/dL (7-18); Calcium 8.8 mg/dL (8.5-10.1); Carbon Dioxide 30 mmol/L (21-32); Chloride 106 mmol/L (98-108); Estimated Glomerular Filt Rate > 60; Glucose 90 mg/dL (70-99); INR 0.9; Osmolality Calculated 294 mOsm/kg (285-295); Partial Thromboplastin Time 32.5 SEC (23.90-30.70); Potassium 4.7 mmol/L (3.5-5.1); Prothrombin Time 10.1 Seconds (9.50-12.10); Sodium 141 mmol/L (136-145)
== END 2023-03-26 08:46 | disposition home or self-care (01) ==
LOC: CHSIMG 08:47
PROVIDERS: PCP Internal Medicine; Visit Provider Internal Medicine
DX: I82.412 Acute embolism and thrombosis of left femoral vein (principal); M79.89 Other specified soft tissue disorders
CPT/HCPCS: 36415; 80053; 85025; 85610; 85730; 93971

== ENCOUNTER 2023-04-24 08:41 | Outpatient (CLI) | payer MEDICARE, SELFPAY ==
[2023-04-24 09:22] LABS: Basophils Absolute Auto 0.05 K/mm3 (0.00-0.10); Basophils Percent Auto 0.6 % (0.0-1.0); Eosinophils Absolute Auto 0.14 K/mm3 (0.02-0.50); Eosinophils Percent Auto 1.8 % (1.0-6.0); Hematocrit 38.9 % (35.0-49.0); Hemoglobin 12.3 g/dL (12.0-15.0); Immature Granulocyte Absolute 0.06 K/mm3 (0.00-0.00); Immature Granulocyte Percent A 0.8 % (0.0-0.0); Lymphocytes Percent Auto 42.9 % (18.0-42.0); Mean Corpuscular HGB Conc 31.6 g/dL (32.0-36.0); Mean Corpuscular Hemoglobin 31.9 pg (27.0-31.0); Mean Corpuscular Volume 100.8 fL (78.0-102.0); Mean Platelet Volume 9.5 fl (9.2-11.8); Monocytes Absolute Auto 0.86 K/mm3 (0.10-0.90); Monocytes Percent Auto 11.2 % (2.0-11.0); Neutrophils Absolute Auto 3.3 K/mm3 (1.7-7.2); Neutrophils Percent Auto 42.7 % (50.0-70.0); Platelet Count Result 234 K/mm3 (150-420); Red Blood Count 3.86 M/mm3 (4.20-5.40); Red Cell Distribution Width 14.9 % (11.6-14.4); White Blood Count 7.7 K/mm3 (4.8-10.8)
[2023-04-24 09:29] LABS: INR 2.1; Prothrombin Time 21.7 Seconds (9.50-12.10)
[2023-04-24 09:58] LABS: Alanine Aminotransferase 15 U/L (14-59); Albumin Level 2.7 g/dL (3.4-5.0); Alkaline Phosphatase 128 U/L (46-116); Anion Gap 7 mmol/L (8-16); Appearance Urine Slightly Cloudy (Clear); Aspartate Amino Transferase 22 U/L (15-37); Bilirubin Urine Negative (Negative); Bilirubin,Total 0.2 mg/dL (0.00-1.00); Blood Urea Nitrogen 21 mg/dL (7-18); Blood Urine 2+ (Negative); Carbon Dioxide 27 mmol/L (21-32); Chloride 107 mmol/L (98-108); Cholesterol 140 mg/dL (0-200); Color Urine Light Yellow (Yellow); Creatine Kinase 29 U/L (26-192); Estimated Glomerular Filt Rate > 60; Free T3 2.75 pg/mL (2.18-3.98); Free T4 Free Thyroxine 0.85 ng/dL (0.76-1.46); Glucose 89 mg/dL (70-99); Glucose Urine UA Negative (Negative); HDL Direct 57 mg/dL (40-60); Ketones Urine Negative (Negative); LDL Cholesterol Calculated 50 mg/dL (<130); Leukocyte Esterase Ur 1+ LEU/UL (Negative); Nitrate Urine Positive (Negative); Osmolality Calculated 294 mOsm/kg (285-295); Potassium 3.9 mmol/L (3.5-5.1); Protein Urine Negative (Negative); Sodium 141 mmol/L (136-145); Specific Grav Ur >= 1.030 (1.010-1.020); Total Protein 5.6 g/dL (6.4-8.2); Triglycerides 166 mg/dL (0-150); Uric Acid 3.1 mg/dL (2.6-6.0); Urobilinogen Urine 0.2 mg/dL (0.2-1.0); pH Urine 5.5 (5.0-8.0)
[2023-04-24 10:17] LABS: Add Urine Microscopic? YES
[2023-04-24 10:18] LABS: Bacteria Urine 2+ /hpf; Squamous Epithelial Cell Urine Few /hpf (Few)
[2023-04-27 12:18] LABS: Vitamin D 25 Hydroxy 34 ng/mL (30-100)
== END 2023-04-24 08:42 | disposition home or self-care (01) ==
LOC: CHSLAB 08:44
PROVIDERS: PCP Internal Medicine; Visit Provider Internal Medicine
DX: Z79.01 Long term (current) use of anticoagulants (principal); E78.2 Mixed hyperlipidemia; N39.0 Urinary tract infection, site not specified; E03.9 Hypothyroidism, unspecified; R73.01 Impaired fasting glucose; E79.0 Hyperuricemia without signs of inflammatory arthritis and tophaceous disease; M81.0 Age-related osteoporosis without current pathological fracture; R82.90 Unspecified abnormal findings in urine
CPT/HCPCS: 36415; 80053; 80061; 81001; 82306; 82550; 83036; 84439; 84443; 84481; 84550; 85025; 85610; 87077; 87086; 87088; 87186

== ENCOUNTER 2023-05-26 11:25 | Emergency (ER) | payer MEDICARE, SELFPAY ==
[2023-05-26] VITALS (9 sets, daily range): BP systolic 138–150; BP diastolic 84–90; PULSE 60–85; RESP 16–22; TEMP 36.6; O2SAT 95–100
--- NOTE | ~2023-05-26 | CT_ITS ---
CT of the Abdomen and Pelvis: Indication: Abdominal pain Technique: 2.5 mm axial scans were obtained through the abdomen and pelvis following intravenous adm inistration of 100 cc of Omnipaque 350. Dose reduction technique was used on this scan by utilizing a utomated exposure control and iterative reconstruction technique. The dose-length product (DLP) was 9 92.65 mGy-cm. COMPARISON: 11/02/2022 Findings: Scans through the lung bases are unremarkable. Probable diffuse fatty infiltration of liver noted. The spleen, pancreas, and adrenal glands are with in normal limits. Bilateral renal cysts are noted. Cholecystectomy clips noted. There are atheroscler otic calcifications of the aorta. No lymphadenopathy. No bowel obstruction or bowel wall thickening. Evidence of prior bowel surgery noted. No abscess or f ree air. Images through the pelvis were performed. Urinary bladder unremarkable. No pelvic mass seen. No ascit es. Patient is status post hysterectomy. Impression: No acute abnormality seen. Diffuse fatty infiltration of liver. Postoperative changes, as above. Reviewed, dictated and finalized at location . [employer] Impression: No acute abnormality seen. Diffuse fatty infiltration of liver. Postoperative changes, as above.
[2023-05-26 13:29] LABS: Basophils Percent Auto 0.3 % (0.2-1.2); Eosinophils Absolute Auto 0.1 K/mm3 (0-0.3); Hematocrit 40.6 % (37.0-47.0); Immature Granulocyte Absolute 0.03 K/mm3 (0.00-0.031); Immature Granulocyte Percent A 0.5 % (0-0.5); Lymphocytes Absolute Auto 1.68 K/mm3 (0.9-3.2); Lymphocytes Percent Auto 26.8 % (18.3-44.2); Mean Corpuscular Hemoglobin 31.9 pg (26-34); Mean Corpuscular Volume 99.8 fl (80-100); Mean Platelet Volume 9.2 fl (7.4-10.4); Monocytes Absolute Auto 0.7 K/mm3 (0.1-0.6); Monocytes Percent Auto 10.4 % (2.6-8.5); Neutrophils Absolute Auto 3.8 K/mm3 (1.3-6.7); Platelet Count Result 184 k/mm3 (150-375); Red Blood Count 4.07 M/mm3 (4.2-5.4); Red Cell Distribution Width 13.6 % (11.5-14.5); White Blood Count 6.3 K/mm3 (4.5-10.0)
[2023-05-26] MEDS: SODIUM CHLORIDE 0.9% IV 1,000 ML 999 ML IV CONT (13:30)
[2023-05-26] MEDS: ONDANSETRON INJ 4 MG/2 ML VIAL IV PUSH (13:31)
[2023-05-26 13:44] LABS: Alanine Aminotransferase 20 U/L (6-35); Albumin Level 3.9 g/dL (3.5-5.1); Alkaline Phosphatase 101 U/L (38-126); Anion Gap 5 mmol/L (8-16); Aspartate Amino Transferase 26 U/L (14-36); Bilirubin,Total 0.8 mg/dL (0.2-1.3); Blood Urea Nitrogen 27 mg/dL (7-17); Calcium 9.8 mg/dL (8.4-10.2); Carbon Dioxide 26 mmol/L (22-30); Chloride 102 mmol/L (98-107); Estimated CRCL calculation 52 ml/min; Estimated Glomerular Filt Rate 56; Glucose 96 mg/dL (65-110); Lipase 18 U/L (23-300); Potassium 4.2 mmol/L (3.4-5.0); Sodium 133 mmol/L (137-145)
[2023-05-26 13:48] LABS: Appearance Urine Cloudy (Clear); Bacteria Urine None Seen /hpf; Bilirubin Urine Negative (Negative); Blood Urine Trace (Negative); Color Urine Yellow (Yellow); Glucose Urine UA Negative (Negative); Hyaline Casts Urine Present /lpf; Ketones Urine Negative (Negative); Leukocyte Esterase Ur 1+ LEU/UL (Negative); Nitrate Urine Negative (Negative); Protein Urine Negative (Negative); RBC Urine 0-2 /hpf (0-2); Specific Grav Ur 1.016 (1.001-1.035); Squamous Epithelial Cell Urine Occasional /hpf (Few)
[2023-05-26 14:02] LABS: Add Urine Microscopic? YES
[2023-05-26] MEDS: BELLADONNA ALK/PHENOB ELIX 10 ML, MAG HYDROX/ALUMINUM HYD/SIMETH 30 ML, LIDOCAINE HCL 2... PO (14:33)
--- NOTE | 2023-05-26 15:24 | ED.ABDPAIN ---
HPI - Abdominal Pain General Chief Complaint: Abdominal Pain Stated Complaint: abdominal pain Time Seen by Provider: 05/26/23 12:57 Source: patient and family () Limitations: no limitations History of Present Illness HPI narrative: This is a 62 yo female with PMH lung cancer and bariatric surgery/gastric bypass who presents with 2-3 weeks of epigastric abdominal pain, worse for the past few days. It is associated with nausea. She states she feels it started after they started changing some of her psych meds because she was tired. Her last radiation was 3 weeks ago. No vomiting but dry heaves. Her LBM was yesterday, denies diarrhea, constipation, melena, hematochezia. Last oral intact were saltines this morning. Decreased appetite. No fever. Denies chest pain. She is intermittently short of breath and on O2 for COPD. Denies cough. Last EGD was years ago around the time of her bypass surgery; up to date on routine colonoscopies. She was recently prescribed meclizine for her abdominal pain. She denies any vertiginous symptoms. She is also on a short course of macrobid for a UTI Medication list is extensive: levothyroxine, carvedilol, ezetimibe, calcitriol, lisinopril, furosemide, lansoprazole, allopurinol, folic acid, Vit B12, solenfenoc, buproprion, hydroxyzine, quetiapine, buspirone, warfarin, sertralin, pregabalin, duloxetine, Vit D, amitriptyline, KCl, tramadol, morphine, Humira, prednisone, alprazolam, inhalers, meclizine, and short course of Macrobid. Related Data Home Medications Medication Instructions Recorded Confirmed adalimumab 40 mg/0.8 mL 40 mg subcut ONCE 11/02/22 11/02/22 subcutaneous syringe kit (Humira) albuterol sulfate 90 mcg/actuation 2 puff inhalation Q6-8H 11/02/22 11/02/22 aerosol inhaler allopurinol 300 mg tablet 100 mg PO DAILY 11/02/22 11/02/22 alprazolam 0.5 mg tablet 0.5 mg PO Q6-8H PRN Anxiety 11/02/22 11/02/22 buspirone 15 mg tablet 15 mg PO DAILY 11/02/22 11/02/22 calcitriol 0.5 mcg capsule 1 mcg PO DAILY 11/02/22 11/02/22 carvedilol 25 mg tablet 25 mg PO BID 11/02/22 11/02/22 doxycycline hyclate 100 mg tablet 100 mg PO BID 11/02/22 11/02/22 duloxetine 60 mg capsule,delayed 60 mg PO DAILY 11/02/22 11/02/22 release ergocalciferol (vitamin D2) 1,250 1,250 mcg PO DAILY 11/02/22 11/02/22 mcg (50,000 unit) capsule ezetimibe 10 mg tablet 10 mg PO DAILY 11/02/22 11/02/22 fluticasone propionate 220 2 puff inhalation Q12H 11/02/22 11/02/22 mcg/actuation HFA aerosol inhaler folic acid 1 mg tablet 1 mg PO DAILY 11/02/22 11/02/22 furosemide 20 mg tablet 20 mg PO DAILY 11/02/22 11/02/22 ipratropium 20 mcg-albuterol 100 1 puff inhalation QID 11/02/22 11/02/22 mcg/actuation mist for inhalation (Combivent Respimat) lansoprazole 30 mg capsule,delayed 30 mg PO BID 11/02/22 11/02/22 release levothyroxine 75 mcg tablet 75 mcg PO DAILY 11/02/22 11/02/22 lisinopril 40 mg tablet 20 mg PO DAILY 11/02/22 11/02/22 morphine 15 mg tablet,extended 15 mg PO DAILY PRN Pain 11/02/22 11/02/22 release mupirocin 2 % topical ointment 1 applic topical TID 11/02/22 11/02/22 potassium chloride 10 mEq 10 meq PO DAILY 11/02/22 11/02/22 tablet,extended release pregabalin 150 mg capsule 150 mg PO BID 11/02/22 11/02/22 tramadol 50 mg tablet 50 mg PO BID PRN Pain 11/02/22 11/02/22 trazodone 150 mg tablet 150 mg PO HS 11/02/22 11/02/22 Allergies Allergy/AdvReac Type Severity Reaction Status Date / Time erythromycin base Allergy Unknown Hives Verified 05/26/23 13:20 Penicillins Allergy Unknown Hives Verified 05/26/23 13:20 Sulfa (Sulfonamide Allergy Unknown Hives Verified 05/26/23 13:20 Antibiotics) sumatriptan Allergy Unknown Hives Verified 05/26/23 13:20 [facility] Past Medical History Medical History (Updated 05/28/23 @ 18:18 by Ivette Lo MD) Asthma COPD (chronic obstructive pulmonary disease) DVT (deep venous thrombosis) Lung cancer Pulmonary embolism Surgical History Surgical History (Upd
[2023-05-26] MEDS: HALOPERIDOL LACTATE 5 MG/ML VIAL 2.5 MG IV PUSH (15:39)
== END 2023-05-26 16:17 | disposition home or self-care (01) ==
PROVIDERS: Emergency Provider Student in an Organized Health Care Education/Training Program; PCP Internal Medicine
DX: K29.70 Gastritis, unspecified, without bleeding (principal); C34.90 Malignant neoplasm of unspecified part of unspecified bronchus or lung; J44.9 Chronic obstructive pulmonary disease, unspecified; Z99.81 Dependence on supplemental oxygen; Z98.84 Bariatric surgery status; Z86.718 Personal history of other venous thrombosis and embolism; Z86.711 Personal history of pulmonary embolism; Z87.891 Personal history of nicotine dependence; Z90.49 Acquired absence of other specified parts of digestive tract; Z79.01 Long term (current) use of anticoagulants; K76.0 Fatty (change of) liver, not elsewhere classified
CPT/HCPCS: 36415; 74177; 80053; 81001; 83690; 85025; 87086; 96361; 96374; 96375; 99284; A9270; J1630; J2405; J7030; Q9967

== ENCOUNTER 2023-05-27 15:16 | Outpatient (RCR) | payer MEDICARE, SELFPAY ==
[2023-05-03 09:20] LABS: INR 4.2; Prothrombin Time 41.3 Seconds (9.50-12.10)
[2023-05-27 15:57] LABS: INR 2.7; Prothrombin Time 27.9 Seconds (9.50-12.10)
== END 2023-08-01 23:59 | disposition home or self-care (01) ==
LOC: CHSLAB 15:16
PROVIDERS: PCP Internal Medicine; Visit Provider Internal Medicine
DX: Z51.81 Encounter for therapeutic drug level monitoring (principal); Z79.01 Long term (current) use of anticoagulants
CPT/HCPCS: 36415; 85610

== ENCOUNTER 2023-05-28 08:40 | Emergency (ER) | payer MEDICARE, SELFPAY ==
[2023-05-28] VITALS (35 sets, daily range): BP systolic 108–178; BP diastolic 71–146; PULSE 61–77; RESP 12–23; TEMP 36.7–37.1; O2SAT 82–98
--- NOTE | ~2023-05-28 | CT_ITS ---
CT of the Abdomen and Pelvis: Indication: Abdominal pain Technique: 2.5 mm axial scans were obtained through the abdomen and pelvis following intravenous adm inistration of 100 cc of Omnipaque 350. Dose reduction technique was used on this scan by utilizing a utomated exposure control and iterative reconstruction technique. The dose-length product (DLP) was 1 293.70 mGy-cm. COMPARISON: 05/26/2023 Findings: Scans through the lung bases demonstrated small hiatal hernia. There is probable diffuse fatty infiltration of liver. The spleen, pancreas, adrenals and kidneys are within normal limits. Cholecystectomy clips present. There are atherosclerotic calcifications of the aorta. No lymphadenopathy. No bowel obstruction or bowel wall thickening. Probable prior bariatric surgery. Images through the pelvis were performed. Urinary bladder unremarkable. Patient is post hysterectomy. No pelvic mass seen. No ascites. Impression: No acute abnormality seen. No change from recent prior exam. Probable diffuse fatty infiltration of liver. Stable postoperative changes. Reviewed, dictated and finalized at location . [employer] TESTER Impression: No acute abnormality seen. No change from recent prior exam. Probable diffuse fatty infiltration of liver. Stable postoperative changes.
--- NOTE | 2023-05-28 08:58 | ECG_ITS ---
Measurements Intervals [place] Rate: 63 P: 52 MS: 181 QRS: 265 QRSD: 101 T: 67 QT: 395 QTc: 406 Interpretive Statements SINUS RHYTHM RIGHT AXIS DEVIATION LOW QRS VOLTAGE IN PRECORDIAL LEADS PATTERN CONSISTENT WITH PULMONARY DISEASE INCOMPLETE RIGHT BUNDLE BRANCH BLOCK BORDERLINE T WAVE ABNORMALITY- ANTERIOR LEADS BASELINE ARTIFACT- I, III, AVR, AVL, AVF, V1-V2 BORDERLINE ECG COMPARED TO ECG 11/02/2022 11:40:37 NO SIGNIFICANT CHANGES Electronically Signed On 05-28-2023 11:51:12 [employer] by Miki Josue D.O.
[2023-05-28] MEDS: SODIUM CHLORIDE 0.9% IV 1,000 ML 999 ML IV CONT (09:14)
[2023-05-28] MEDS: ONDANSETRON INJ 4 MG/2 ML VIAL IV PUSH (09:15)
[2023-05-28] MEDS: MORPHINE SULFATE (*CRX) 4 MG/ML INJ IV PUSH (09:15)
[2023-05-28] MEDS: PANTOPRAZOLE SODIUM IV 40 MG VIAL IV PUSH (09:15)
[2023-05-28 09:16] LABS: Basophils Absolute Auto 0.02 K/mm3 (0.00-0.10); Basophils Percent Auto 0.4 % (0.0-1.0); Eosinophils Absolute Auto 0.05 K/mm3 (0.02-0.50); Eosinophils Percent Auto 0.9 % (1.0-6.0); Hemoglobin 13.2 g/dL (12.0-15.0); Immature Granulocyte Absolute 0.03 K/mm3 (0.00-0.00); Immature Granulocyte Percent A 0.5 % (0.0-0.0); Lymphocytes Absolute Auto 1.68 K/mm3 (1.10-4.50); Lymphocytes Percent Auto 29.6 % (18.0-42.0); Mean Corpuscular Hemoglobin 32.4 pg (27.0-31.0); Mean Platelet Volume 8.7 fl (9.2-11.8); Monocytes Absolute Auto 0.49 K/mm3 (0.10-0.90); Monocytes Percent Auto 8.6 % (2.0-11.0); Neutrophils Absolute Auto 3.4 K/mm3 (1.7-7.2); Platelet Count Result 174 K/mm3 (150-420); Red Blood Count 4.08 M/mm3 (4.20-5.40); Red Cell Distribution Width 13.2 % (11.6-14.4); White Blood Count 5.7 K/mm3 (4.8-10.8)
[2023-05-28] MEDS: MAG HYDROX/ALUMINUM HYD/SIMETH 30 ML, PHENobarb/HYOSCY/ATROPINE/SCOP 32.4 MG, LIDOCAINE... PO (09:16)
--- NOTE | 2023-05-28 09:18 | ED.ABDPAIN ---
HPI - Abdominal Pain General Chief Complaint: Abdominal Pain Stated Complaint: abdominal pain/headache Time Seen by Provider: 05/28/23 08:56 History of Present Illness HPI narrative: Patient is a 62-year-old female with significant past medical history presents today with abdominal pain. Patient's abdominal pain for a few weeks now. The pain has been on off but has been severe up to a 10/10. She was seen 2 days ago at the emergency department at [facility] and they did do CT scan that showed a fatty liver other than that was negative for any acute processes. She states that they gave her a GI cocktail syndrome on Protonix and this did not help. She is still having severe abdominal pain in the mid quadrant to the radiating left lower quadrant. The scan did not show any pancreatitis or any diverticulitis. She does present as this however. Her last bowel movement was yesterday. She denies any constipation. She denies any vomiting but does have a little bit nausea. Mostly she is having severe 10/10 pain in the midepigastrium. She does have history of an appendectomy and cholecystectomy. MD elicited complaint: abdominal pain Pertinent past history: gastritis Onset (ago): week(s) Pain Consistency: constant Location: epigastric and LLQ Severity: severe Pain scale (0-10): 10 Quality: sharp Exacerbating factors: nothing Relieving factors: nothing Context: confirms other Associated symptoms: denies other symptoms Treatments prior to arrival: NSAIDs and prescription analgesics Related Data Patient : No Home Medications Medication Instructions Recorded Confirmed adalimumab 40 mg/0.8 mL 40 mg subcut ONCE 11/02/22 11/02/22 subcutaneous syringe kit (Humira) albuterol sulfate 90 mcg/actuation 2 puff inhalation Q6-8H 11/02/22 11/02/22 aerosol inhaler allopurinol 300 mg tablet 100 mg PO DAILY 11/02/22 11/02/22 alprazolam 0.5 mg tablet 0.5 mg PO Q6-8H PRN Anxiety 11/02/22 11/02/22 buspirone 15 mg tablet 15 mg PO DAILY 11/02/22 11/02/22 calcitriol 0.5 mcg capsule 1 mcg PO DAILY 11/02/22 11/02/22 carvedilol 25 mg tablet 25 mg PO BID 11/02/22 11/02/22 doxycycline hyclate 100 mg tablet 100 mg PO BID 11/02/22 11/02/22 duloxetine 60 mg capsule,delayed 60 mg PO DAILY 11/02/22 11/02/22 release ergocalciferol (vitamin D2) 1,250 1,250 mcg PO DAILY 11/02/22 11/02/22 mcg (50,000 unit) capsule ezetimibe 10 mg tablet 10 mg PO DAILY 11/02/22 11/02/22 fluticasone propionate 220 2 puff inhalation Q12H 11/02/22 11/02/22 mcg/actuation HFA aerosol inhaler folic acid 1 mg tablet 1 mg PO DAILY 11/02/22 11/02/22 furosemide 20 mg tablet 20 mg PO DAILY 11/02/22 11/02/22 ipratropium 20 mcg-albuterol 100 1 puff inhalation QID 11/02/22 11/02/22 mcg/actuation mist for inhalation (Combivent Respimat) lansoprazole 30 mg capsule,delayed 30 mg PO BID 11/02/22 11/02/22 release levothyroxine 75 mcg tablet 75 mcg PO DAILY 11/02/22 11/02/22 lisinopril 40 mg tablet 20 mg PO DAILY 11/02/22 11/02/22 morphine 15 mg tablet,extended 15 mg PO DAILY PRN Pain 11/02/22 11/02/22 release mupirocin 2 % topical ointment 1 applic topical TID 11/02/22 11/02/22 potassium chloride 10 mEq 10 meq PO DAILY 11/02/22 11/02/22 tablet,extended release pregabalin 150 mg capsule 150 mg PO BID 11/02/22 11/02/22 tramadol 50 mg tablet 50 mg PO BID PRN Pain 11/02/22 11/02/22 trazodone 150 mg tablet 150 mg PO HS 11/02/22 11/02/22 Allergies Allergy/AdvReac Type Severity Reaction Status Date / Time erythromycin base Allergy Unknown Hives Verified 05/26/23 13:20 Penicillins Allergy Unknown Hives Verified 05/26/23 13:20 Sulfa (Sulfonamide Allergy Unknown Hives Verified 05/26/23 13:20 Antibiotics) sumatriptan Allergy Unknown Hives Verified 05/26/23 13:20 Review of Systems Review of Systems: All systems reviewed & are unremarkable except as noted in HPI and below Constitutional: Constitutional: Reports as per HPI and Reports no additional constitutional complaints Eyes:
[2023-05-28 09:34] LABS: Alanine Aminotransferase 19 U/L (14-59); Albumin Level 3.1 g/dL (3.4-5.0); Alkaline Phosphatase 122 U/L (46-116); Anion Gap 8 mmol/L (8-16); Aspartate Amino Transferase 13 U/L (15-37); Bilirubin,Total 0.5 mg/dL (0.00-1.00); Blood Urea Nitrogen 23 mg/dL (7-18); Calcium 9.7 mg/dL (8.5-10.1); Carbon Dioxide 28 mmol/L (21-32); Chloride 102 mmol/L (98-108); Estimated CRCL calculation 43 ml/min; Estimated Glomerular Filt Rate 45; Glucose 100 mg/dL (70-99); Lipase 11 U/L (16-77); Osmolality Calculated 289 mOsm/kg (285-295); Potassium 4.4 mmol/L (3.5-5.1); Sodium 138 mmol/L (136-145); Total Protein 6.3 g/dL (6.4-8.2); Troponin I 10.1 ng/L (0.00-60.4)
[2023-05-28 09:36] LABS: Lactic Acid Reflex 1.1 mmol/L (0.4-2.0)
--- NOTE | 2023-05-28 11:19 | PC.NURSE ---
0930 pt resting , family in room , call sierra in reach. 1030 pt repositions self in bed, no needs at this time 1120 pt up to bedside commode,
[2023-05-28 11:28] LABS: Appearance Urine Clear (Clear); Bilirubin Urine Negative (Negative); Blood Urine Trace-Intact (Negative); Color Urine Yellow (Yellow); Glucose Urine UA Negative (Negative); Ketones Urine Negative (Negative); Leukocyte Esterase Ur Negative LEU/UL (Negative); Nitrate Urine Negative (Negative); Protein Urine Negative (Negative); Urobilinogen Urine 0.2 mg/dL (0.2-1.0); pH Urine 5.5 (5.0-8.0)
[2023-05-28 11:42] LABS: Add Urine Microscopic? YES; RBC Urine 0-2 /hpf (0-2); WBC Urine 0-3 /hpf (0-3)
[2023-05-28 11:43] LABS: Bacteria Urine 2+ /hpf; Squamous Epithelial Cell Urine None seen /hpf (Few)
== END 2023-05-28 12:58 | disposition home or self-care (01) ==
PROVIDERS: Emergency Provider Family Medicine; PCP Internal Medicine
DX: K52.9 Noninfective gastroenteritis and colitis, unspecified (principal); Z87.891 Personal history of nicotine dependence
CPT/HCPCS: 36415; 74177; 80053; 81001; 83605; 83690; 84484; 85025; 93005; 96361; 96374; 99284; A9270; C9113; J2270; J2405; J7030; Q9967

== ENCOUNTER 2023-06-22 09:54 | Outpatient (RCR) | payer MEDICARE, SELFPAY ==
--- NOTE | 2023-06-22 10:57 | OPREHPOC ---
Outpatient Therapy Plan of Care This is a Multidisciplinary Plan of Care that may contain components documented by all disciplines (PT, OT, and ST.) PT Problem 1 PT Problem #1 Knowledge Deficit PT Goal 1 Goal Patient to demonstrate independence with HEP Target Visit 6 PT Problem 2 PT Problem #2 Impaired Strength PT Goal 1 Goal Patient to demonstrate 5/5 strength of B LE to improve ability to get up out of chair Target Visit 12 PT Problem 3 PT Problem #3 Impaired Functional Mobil PT Goal 1 Goal 1. Patient to complete 6 min walk test with only 1 seated rest break 2. Patient to complete TUG in <15 seconds to decrease fall risk 3. Patient to report ability to stand up from chair at PLOF Target Visit 12
--- NOTE | 2023-06-22 10:58 | PTOPEVAL1 ---
Assessment and note entered by Myrna Mcneal DPT Evaluation Information Assessment Status Evaluation Diagnosis weakness Onset 06/07/23 Subjective Information Patient reports in May she was very sick and hospitalized for 8 days and diagnosed with GERD. She reports since then she has felt very weak. She is having trouble getting up out of a chair and walking. She reports she also feels like her balanace has decreased. She is now using a rollator and prior was not using an AD. She reports she is not working. Prior she was independent with house hold tasks. She reports she has RA and lung cancer. Reported Pain Level Pain Score 0: Self Report Assessment PT Clinical Summary Mrs. Garcia is a 63 year old female who presents to PT with weakness. She demonstrates decreased B LE strength, impaired balance and impaired gait leading to difficulty with standing up from chair, completing house hold tasks and ambulating at home and in the community. She would benefit from skilled PT to address impairments and return to PLOF. Plan of Care Interventions Gait Training,Hot Pack/Cold Pack,Manual Therapy, Neuro Re-education,Patient/Caregiver Educati, Therapeutic Activities,Therapeutic Exercise PT Services Indicated Yes Treatment Frequency and 3x weekly for 12 visits Duration These treatments will address the objective and functional deficits as defined above. The patient will be advanced safely and appropriately in order for the patient to progress towards his/her prior level of function. Additional exercises will be introduced and as well as a comprehensive home exercise program upon discharge, if needed, ?to ensure carryover of functional gains achieved in the clinic. This treatment plan has been reviewed and agreement upon by the patient.
--- NOTE | 2023-07-14 11:50 | OPREHPOC ---
Outpatient Therapy Plan of Care This is a Multidisciplinary Plan of Care that may contain components documented by all disciplines (PT, OT, and ST.) PT Problem 1 PT Problem #1 Knowledge Deficit PT Goal 1 Goal Patient to demonstrate independence with HEP Target Visit 6 Progress Not Met PT Problem 2 PT Problem #2 Impaired Strength PT Goal 1 Goal Patient to demonstrate 5/5 strength of B LE to improve ability to get up out of chair Target Visit 12 Progress Not Met PT Problem 3 PT Problem #3 Impaired Functional Mobil PT Goal 1 Goal 1. Patient to complete 6 min walk test with only 1 seated rest break 2. Patient to complete TUG in <15 seconds to decrease fall risk 3. Patient to report ability to stand up from chair at PLOF Target Visit 12 Progress Not Met
--- NOTE | 2023-07-14 11:50 | PTOPPROG ---
Assessment and note entered by Aysha Salmon, PT Evaluation Information Assessment Status Progress Diagnosis Weakness Onset 06/07/23 Subjective Information Tasha reports she fell on 07/11/23 when her small dog ran out in front of her. She was walking without her rollator and fell backwards. She heard a pop come from her back when she fell and has been having back pain since then. She took it easy on 07/12/23 and she had less pain on 07/13/23 so she tried to clean and take down [place] decorations. Today she is having more pain and had difficulty getting off the toilet. She has not been to the doctor or ER since the fall. She is using a heating pad, tramadol, and tylenol for pain relief. The pain is waking her at night when she tries to roll over and when she sits up from laying or stands up from sitting. She denies pain or parathesias in the lower extremity. Assessment PT Clinical Summary Tasha Garcia presents with low back pain following a fall backwards on 07/11/23. She has not had diagnostic tests and is noting worse pain with rolling in bed, transfers from sitting to standing, and sitting to/from supine as well as difficulty getting up from the toilet. She demonstrates decreased lumbar AROM, tenderness in the left lumbar paraspinals, and decreased left hip flexion and knee extension strength. Exercises were reduced this date and modalities were applied for pain control. Plan of Care Interventions Electrical Stimulation,Hot Pack/Cold Pack,Patient/ Caregiver Educati,Therapeutic Activities, Therapeutic Exercise PT Services Indicated Yes Treatment Frequency and Continue skilled PT for 6 more visits and include Duration low back pain treatment in addition to weakness. These treatments will address the objective and functional deficits as defined above. The patient will be advanced safely and appropriately in order for the patient to progress towards his/her prior level of function. Additional exercises will be introduced and as well as a comprehensive home exercise program upon discharge, if needed, ?to ensure carryover of functional gains achieved in the clinic. This treatment plan has been reviewed and agreement upon by the patient.
--- NOTE | 2023-07-29 11:59 | OPREHPOC ---
Outpatient Therapy Plan of Care This is a Multidisciplinary Plan of Care that may contain components documented by all disciplines (PT, OT, and ST.) PT Problem 1 PT Problem #1 Knowledge Deficit PT Goal 1 Goal Patient to demonstrate independence with HEP Target Visit 6 Progress Met PT Problem 2 PT Problem #2 Impaired Strength PT Goal 1 Goal Patient to demonstrate 5/5 strength of B LE to improve ability to get up out of chair Target Visit 12 Progress Not Met PT Problem 3 PT Problem #3 Impaired Functional Mobil PT Goal 1 Goal 1. Patient to complete 6 min walk test with only 1 seated rest break 2. Patient to complete TUG in <15 seconds to decrease fall risk 3. Patient to report ability to stand up from chair at PLOF Target Visit 12 Progress Partially Met Comment 3 met
--- NOTE | 2023-07-29 11:59 | PTOPDC ---
Assessment and note entered by Myrna Mcneal DPT Evaluation Information Assessment Status Discharge Diagnosis Weakness Onset 06/07/23 Subjective Information Patient reports her back is feeling better. She reports she was feeling stronger prior to onset of back pain but has lost some of her progress. She is ready to return to strengthening. She reports she can get up out of a chair with greater ease. She did get a new PCP and will need a new order to continue with PT. She reports she just saw new PCP last week. Reported Pain Level Pain Score 4: Self Report Pain Score 3: Self Report Assessment PT Clinical Summary Mrs. Garcia has been seen for 12 visits of skilled PT with good progression towards goals. She demonstrates improved TUG time indicating improved balance. She also demonstrates improved LE strength. She reports she continues to feel unsteady but does report improved ability to get up from a chair. She has a new PCP and will need a new order to continue with skilled PT. She will be discharged at this time. Plan of Care PT Services Indicated No
== END 2023-07-29 17:10 | disposition home or self-care (01) ==
LOC: CHSPT 09:54
DX: R53.1 Weakness (principal)
CPT/HCPCS: 97014; 97110; 97112; 97150; 97161; G0283

== ENCOUNTER 2023-08-02 13:02 | Outpatient (RCR) | payer MEDICARE, SELFPAY ==
--- NOTE | 2023-08-02 14:01 | OPREHPOC ---
Outpatient Therapy Plan of Care This is a Multidisciplinary Plan of Care that may contain components documented by all disciplines (PT, OT, and ST.) PT Problem 1 PT Problem #1 Knowledge Deficit PT Goal 1 Goal Patient to demonstrate independence with HEP Target Visit 5 PT Problem 2 PT Problem #2 Pain PT Goal 1 Goal Patient to report highest low back pain at 4/10 to return to house hold tasks at PLOF Target Visit 10 PT Problem 3 PT Problem #3 Impaired Range of Motion PT Goal 1 Goal Patient to demonstrate ability to reach to floor to return to picking up objects for house hold tasks Target Visit 10 PT Problem 4 PT Problem #4 Impaired Strength PT Goal 1 Goal Patient to demonstrate 4+/5 B LE strength to improve ability to get up out of chair Target Visit 10 PT Problem 5 PT Problem #5 Impaired Functional Mobil PT Goal 1 Goal 1. Patient to ambulate 600' during 6 min walk test 2. Patient to improve 5TSTS to under 15 seconds to decrease fall risk with house hold mobility 3. Patient to ambulate 100' with use of cane
--- NOTE | 2023-08-02 14:01 | PTOPEVAL1 ---
Assessment and note entered by Myrna Mcneal DPT Evaluation Information Assessment Status Evaluation Diagnosis weakness, low back pain Onset 07/29/22 Subjective Information Patient reports in May she was very sick and hospitalized for 8 days and diagnosed with GERD. She reports since then she has felt very weak. She is having trouble getting up out of a chair and walking. She reports she also feels like her balanace has decreased. She is now using a rollator and prior was not using an AD. She reports she then fell on [place] and has on and off back pain since. Today she reports that yesterday she lost control of bowel and bladder. She reports she is not working. Prior she was independent with house hold tasks. She has previously been attending PT but has changed PCP She reports she has RA and lung cancer. [ End ] Reported Pain Level Pain Score 5: Self Report Assessment PT Clinical Summary Mrs. Garcia is a 63 year old female who presents to PT with weakness and low back pain. Patient demonstrates decreased balance, decreased B LE weakness, and impaired gait mechanics impairing her ability to ambulate at home and in the community, complete house hold cooking and cleaning tasks and grocery shopping. She would benefit from skilled PT to address impairments and return to PLOF. Patient was educated this date to call MD after appointment to inform them of loss of bowel and bladder control. Plan of Care Interventions Electrical Stimulation,Gait Training,Hot Pack/Cold Pack,Manual Therapy,Mechanical Traction,Neuro Re- education,Patient/Caregiver Educati,Therapeutic Activities,Therapeutic Exercise PT Services Indicated Yes Treatment Frequency and 2x weekly for 10 visits Duration These treatments will address the objective and functional deficits as defined above. The patient will be advanced safely and appropriately in order for the patient to progress towards his/her prior level of function. Additional exercises will be introduced and as well as a comprehensive home exercise program upon discharge, if needed, ?to ensure carryover of functional gains achieved in the clinic. This treatment plan has been reviewed and agreement upon by the patient.
--- NOTE | 2023-08-16 12:58 | PCPTNOTE ---
Patient cancelled session today. Patient states that she is still sick.
--- NOTE | 2023-09-03 07:48 | PCPTNOTE ---
patient called to cancel stating she is unable to make it in
--- NOTE | 2023-09-16 11:57 | OPREHPOC ---
Outpatient Therapy Plan of Care This is a Multidisciplinary Plan of Care that may contain components documented by all disciplines (PT, OT, and ST.) PT Problem 1 PT Problem #1 Knowledge Deficit PT Goal 1 Goal Patient to demonstrate independence with HEP Target Visit 5 Progress Met PT Problem 2 PT Problem #2 Pain PT Goal 1 Goal Patient to report highest low back pain at 4/10 to return to house hold tasks at PLOF Target Visit 10 Progress Met PT Problem 3 PT Problem #3 Impaired Range of Motion PT Goal 1 Goal Patient to demonstrate ability to reach to floor to return to picking up objects for house hold tasks Target Visit 10 Progress Not Met Comment not tested due to lumbar fracture PT Problem 4 PT Problem #4 Impaired Strength PT Goal 1 Goal Patient to demonstrate 4+/5 B LE strength to improve ability to get up out of chair Target Visit 10 Progress Not Met PT Problem 5 PT Problem #5 Impaired Functional Mobil PT Goal 1 Goal 1. Patient to ambulate 600' during 6 min walk test 2. Patient to improve 5TSTS to under 15 seconds to decrease fall risk with house hold mobility met 3. Patient to ambulate 100' with use of cane met Target Visit 10 Progress Partially Met Comment 2 and 3 met
--- NOTE | 2023-09-16 11:57 | PTOPDC ---
Assessment and note entered by Myrna Mcneal DPT Evaluation Information Assessment Status Re-evaluation Diagnosis weakness, low back pain Onset 07/29/22 Subjective Information Patient reports in May she was very sick and hospitalized for 8 days and diagnosed with GERD. She reports since then she has felt very weak. She is having trouble getting up out of a chair and walking. She reports she also feels like her balanace has decreased. She is now using a rollator and prior was not using an AD. She reports she then fell on [place] and has on and off back pain since. Today she reports that yesterday she lost control of bowel and bladder. She reports she is not working. Prior she was independent with house hold tasks. She has previously been attending PT but has changed PCP She reports she has RA and lung cancer. [ End ] Reported Pain Level Pain Score 0: Self Report Assessment PT Clinical Summary Mrs. Garcia attended 8 visits of skilled PT with good progression towards goals. She met goals for HEP and pain but did not meet goals for strength, balance and ROM. She demonstrated improved TUG and 5TSTS scoring indicating decreased fall risk but continues to be limited with activity due to fatigue. She is only able to ambulate 200' with rollator prior to needing seated rest. She is independent with HEP and will be discharged at this time. Plan of Care PT Services Indicated No
== END 2023-09-16 13:39 | disposition home or self-care (01) ==
LOC: CHSPT 13:02
PROVIDERS: Visit Provider Family Medicine
DX: R53.1 Weakness (principal)
CPT/HCPCS: 97110; 97116; 97161; 97530

== ENCOUNTER 2023-08-04 08:35 | Outpatient (CLI) | payer MEDICARE, SELFPAY ==
--- NOTE | ~2023-08-04 | XR_ITS ---
XR lumbar spine min 4V DATE: 08/04/2023 09:02 INDICATION: Chronic bilateral low back pain without sciatica TECHNIQUE: AP, lateral, coned lateral lumbosacral and bilateral oblique views COMPARISON: 11/02/2022 CT abdomen pelvis FINDINGS: There is diffuse osteopenia. There is mild thoracolumbar levoscoliosis. There is moderate anterior wedge compression fracture of L2, new since November 02, 2022. There is mild interval cupping of the superior vertebral endplate of L3 since November 02, 2022. There is degenerative change at the apophyseal joints particularly at L4-5 and L5-S1, with associated grade 1 anterolisthesis at L4-5, stable since November 02, 2022. Lumbar and lumbosacral interspaces are relatively preserved. The sacroiliac joints are intact. Surgical clips, right upper quadrant, consistent with cholecystectomy. Surgical clips are also noted in the right lower quadrant. IMPRESSION: New moderate compression fracture deformity of L2 and interval mild cupping of the superi or vertebral endplate of L3 since November 02, 2022 Osteopenia Reviewed, dictated and finalized at location B. ET DEVELOPMENT TRAINER IMPRESSION: New moderate compression fracture deformity of L2 and interval mild cupping of the superior vertebral endplate of L3 since November 02, 2022 Osteopenia
== END 2023-08-04 08:36 | disposition home or self-care (01) ==
LOC: CHSIMG 08:40
PROVIDERS: PCP Family Medicine; Visit Provider Family Medicine
DX: M54.50 Low back pain, unspecified (principal); G89.29 Other chronic pain; M48.56XA Collapsed vertebra, not elsewhere classified, lumbar region, initial encounter for fracture; M85.88 Other specified disorders of bone density and structure, other site
CPT/HCPCS: 72110

== ENCOUNTER 2023-08-31 13:22 | Outpatient (CLI) | payer MEDICARE, SELFPAY ==
--- NOTE | ~2023-08-31 | MM_ITS ---
EXAMINATION: MM screening [facility] BI w [facility] HISTORY: Screening mammogram TECHNIQUE: Craniocaudal and mediolateral oblique 3-D tomosynthesis images were obtained and synthetic 2-D images were generated. CAD analysis was submitted and interpreted. COMPARISON: 08/07/2022, 03/20/2021, 03/07/2020 BREAST PARENCHYMAL COMPOSITION: There are scattered areas of fibroglandular density. FINDINGS: No suspicious mass, calcification, or architectural distortion are identified in either kyle ast to suggest malignancy. There has been no suspicious interval change. IMPRESSION: 1. No mammographic evidence of malignancy. 2. Recommend routine screening mammography in one year. BI-RADS Category 1: Negative Reviewed, dictated and finalized at location A. [employer] INTERVIEWS INTERN
== END 2023-08-31 13:23 | disposition home or self-care (01) ==
LOC: CHSIMG 13:23
PROVIDERS: PCP Family Medicine; Visit Provider Family Medicine
DX: Z12.31 Encounter for screening mammogram for malignant neoplasm of breast (principal)
CPT/HCPCS: 77063; 77067

== ENCOUNTER 2024-03-21 10:02 | Outpatient (CLI) | payer MEDICARE, SELFPAY ==
[2024-03-21 10:30] LABS: INR 1.3; Prothrombin Time 13.8 Seconds (9.50-12.1)
== END 2024-03-21 10:03 | disposition home or self-care (01) ==
PROVIDERS: PCP Family Medicine; Visit Provider Family Medicine
DX: Z79.01 Long term (current) use of anticoagulants (principal)
CPT/HCPCS: 36415; 85610

== ENCOUNTER 2024-04-11 10:09 | Outpatient (RCR) | payer MEDICARE, SELFPAY ==
[2024-04-11 10:36] LABS: INR 1.2; Prothrombin Time 12.9 Seconds (9.50-12.1)
== END 2024-07-10 23:59 | disposition home or self-care (01) ==
LOC: CHSLAB 10:09
PROVIDERS: PCP Family Medicine
DX: Z51.81 Encounter for therapeutic drug level monitoring (principal); I27.82 Chronic pulmonary embolism; Z79.01 Long term (current) use of anticoagulants
CPT/HCPCS: 36415; 85610